=== PATIENT | male | born 1955 | race Caucasian/White ===

== ENCOUNTER 2019-12-16 10:21 | Outpatient (CLI) | payer MEDICARE, SELFPAY ==
--- NOTE | ~2019-12-16 | US_ITS ---
EXAMINATION: US carotid duplex BI DATE: 12/16/2019 11:11 INDICATION: Transient right eye visual loss. TECHNIQUE: Grayscale, color Doppler, and pulsed Doppler images of the cervical carotid arteries were obtained. The degree of vessel stenosis is placed in one of the following categories: normal, <50%, 5 0-69%, >=70% but less than near-occlusion, near-occlusion, or total occlusion. Note that percent sten osis relative to normal distal artery lumen diameter is indirectly measured from velocity measurement s as described by Norberto, et al. Radiology 2003; 229:[id number]. COMPARISON: None. FINDINGS: RIGHT: The right common carotid artery (CCA) peak systolic velocity (PSV) is 85 cm/s. The right internal car otid artery (ICA) PSV is 69 cm/s. The right ICA end-diastolic velocity (EDV) is 23 cm/s. The right IC A/CCA PSV ratio is 0.8. Grayscale and color Doppler images yield an estimate of <50% diameter reducti on from plaque in the ICA. There is antegrade flow in the right vertebral artery. LEFT: The left CCA PSV is 98 cm/s. The left ICA PSV is 87 cm/s. The left ICA EDV is 14 cm/s. The left ICA/C CA PSV ratio is 0.9. Grayscale and color Doppler images yield an estimate of <50% diameter reduction from plaque in the ICA. There is antegrade flow in the left vertebral artery. IMPRESSION: 1. <50% stenosis in the right internal carotid artery. 2. <50% stenosis in the left internal carotid artery. Reviewed, dictated and finalized at location A. ATRIC NEUROLOGIST
== END 2019-12-16 10:22 | disposition home or self-care (01) ==
PROVIDERS: Visit Provider Internal Medicine Hematology & Oncology
DX: Z86.73 Personal history of transient ischemic attack (TIA), and cerebral infarction without residual deficits (principal); I65.23 Occlusion and stenosis of bilateral carotid arteries
CPT/HCPCS: 93880

== ENCOUNTER 2020-09-03 16:00 | Emergency (ER) | payer MEDICARE, SELFPAY ==
--- NOTE | ~2020-09-03 | CT_ITS ---
EXAMINATION: CT chest abdomen pelvis w con DATE: 09/03/2020 17:00 INDICATION: Neck and low back pain post fall from ladder. TECHNIQUE: Computed tomography (CT) of the chest, abdomen, and pelvis was performed with 100 mL Omnip aque-350 intravenous contrast. Automated exposure control and iterative reconstruction technique were employed. The dose-length product was 713.86 mGy-cm. COMPARISON: Chest CT dated 05/24/2019 and abdomen and pelvis dated 04/03/2017 FINDINGS: CHEST CT: Unchanged mild subpleural atelectasis/scarring at the posterior medial right lower lobe. Additional m ild scattered linear discoid atelectasis in the bilateral lower lobes. Calcified nodules in the right middle lobe and superior segment of the left lower lobe along with calcified left hilar and mediasti nal lymph nodes consistent with old granulomatous disease. No pneumonia, pulmonary edema, pleural eff usion or pneumothorax. Heart size is normal. No pericardial effusion. Atherosclerotic coronary artery calcification. Thoracic aorta is normal in caliber with no dissection or acute traumatic aortic inju ry. No pathologically enlarged thoracic lymphadenopathy. Mild lower thoracic dextrocurvature with mod erate spondylosis. No acute osseous abnormality. ABDOMEN/PELVIS CT: Liver, gallbladder, pancreas and bilateral adrenal glands are normal. Splenic calcific calcification is consistent with old granulomatous disease. 9 mm left renal cyst. 3 mm nonobstructing stone in the upper pole calyx of the right kidney. Bladder is normal. Prostatomegaly. Bowels including the appendi x are normal. No free intraperitoneal gas or fluid. No pathologically enlarged abdominal or pelvic ly mphadenopathy. Small fat-containing umbilical hernia. Lumbar levoscoliosis with moderate to severe sp ondylosis. Mild to moderate bilateral hip osteoarthritis. No acute osseous abnormality. IMPRESSION: 1. No fractures or acute visceral organ injury in the chest, abdomen or pelvis. 2. Nonobstructing 3 mm right renal stone. 3. Prostatomegaly. Reviewed, dictated and finalized at [facility]. NOLOGY RECRUITER
--- NOTE | ~2020-09-03 | CT_ITS ---
EXAMINATION: CT cervical spine wo con DATE: 09/03/2020 16:56 INDICATION: Neck pain post fall TECHNIQUE: Computed tomography (CT) of the cervical spine was performed without intravenous contrast. Automated exposure control and iterative reconstruction technique were employed. The dose-length pro duct was 379.07 mGy-cm. COMPARISON: None FINDINGS: Straightening of the normal cervical lordosis. Chronic 2 mm anterolisthesis C4 on C5 and chronic 2 mm retrolisthesis C6 on C7. Vertebral body heights are normal. No acute fracture. Moderate disc height loss at C5-C6, C6-C7 and C7-T1 and mild disc height loss from C2-C3 through C4-C5. Mild atherosclerot ic calcification at the bilateral carotid bulbs. Cervical soft tissues are unremarkable. The followin g disc levels are specifically discussed: C2-C3: Disc is bulging. There is mild to moderate bilateral uncovertebral joint osteoarthritis. There is moderate right and severe left facet joint osteoarthritis. There is minimal right and moderate le ft neural foraminal stenosis. There is minimal central canal stenosis. C3-C4: Posterior disc osteophyte complex. There is moderate right and moderate to severe left uncover tebral joint osteoarthritis. There is moderate left and severe right facet joint osteoarthritis. Ther e is moderate to severe bilateral neural foraminal stenosis. There is mild central canal stenosis. C4-C5: Disc is bulging. Fusion across the bilateral uncovertebral and facet joints, both more advance d on the left. There is mild right and moderate left neural foraminal stenosis. There is mild centra l canal stenosis. C5-C6: Posterior disc osteophyte complex. There is severe bilateral uncovertebral joint osteoarthriti s. There is moderate bilateral facet joint osteoarthritis. There is mild to moderate bilateral neural foraminal stenosis. There is mild central canal stenosis. C6-C7: Posterior disc osteophyte complex. There is severe bilateral uncovertebral joint osteoarthriti s. There is mild right and mild to moderate left facet joint osteoarthritis. There is mild right and mild to moderate left neural foraminal stenosis. There is mild central canal stenosis. C7-T1: Disc is bulging. There is mild bilateral uncovertebral joint osteoarthritis. There is moderate right and severe left facet joint osteoarthritis. There is mild bilateral neural foraminal stenosis. There is minimal central canal stenosis. IMPRESSION: 1. Moderate to severe cervical spondylosis with no acute osseous abnormality. Reviewed, dictated and finalized at location H. ICAL INSTRUMENT REPAIR SPECIALIST
--- NOTE | ~2020-09-03 | CT_ITS ---
EXAMINATION: CT brain wo con DATE: 09/03/2020 16:56 INDICATION: Fall from ladder with neck pain TECHNIQUE: Computed tomography (CT) of the head was performed without intravenous contrast. Sagittal and coronal reconstructions were performed. The mA was adjusted according to patient size. Iterative reconstruction technique was employed. The dose-length product was 605.33 mGy-cm. COMPARISON: head CT dated 09/22/2017 FINDINGS: No fracture. No acute intracranial hemorrhage, acute infarction or abnormal extra axial fluid collect ion. Ventricles are normal and symmetric. No mass/mass effect. Slight interval progression in still m ild scattered white matter hypoattenuation consistent with chronic small vessel ischemic disease. The orbits, paranasal sinuses and mastoid air cells are normal. Intracranial calcified cerebral atherosc lerosis is noted. IMPRESSION: 1. No fracture or acute intracranial process. 2. Mild scattered white matter hypoattenuation consistent with chronic small vessel ischemic disease. Reviewed, dictated and finalized at [facility]. CORE FISHING BOAT CREWMAN IMPRESSION: 1. No fracture or acute intracranial process. 2. Mild scattered white matter hypoattenuation consistent with chronic small ve ssel ischemic disease.
[2020-09-03 16:02] VITALS: BP 124/64; PULSE 84; RESP 18; TEMP 36.6; O2SAT 98
[2020-09-03] MEDS: ONDANSETRON INJ 4 MG/2 ML VIAL IV PUSH (16:34)
[2020-09-03] MEDS: MORPHINE SULFATE (*CRX) 4 MG/ML INJ IV PUSH (16:35)
[2020-09-03 16:50] LABS: Basophils Percent Auto 0.5 % (0.2-1.2); Eosinophils Absolute Auto 0.1 K/mm3 (0-0.3); Eosinophils Percent Auto 1.3 % (0-4.4); Hematocrit 43.4 % (42.0-52.0); Hemoglobin 15.3 g/dL (14.0-18.0); Immature Granulocyte Absolute 0.06 K/mm3 (0.00-0.031); Immature Granulocyte Percent A 0.7 % (0-0.5); Lymphocytes Percent Auto 13.8 % (18.3-44.2); Mean Corpuscular HGB Conc 35.3 g/dl (32-36); Mean Corpuscular Hemoglobin 31.9 pg (26-34); Mean Corpuscular Volume 90.4 fl (80-100); Mean Platelet Volume 9.2 fl (7.4-10.4); Monocytes Absolute Auto 0.4 K/mm3 (0.1-0.6); Neutrophils Absolute Auto 6.9 K/mm3 (1.3-6.7); Neutrophils Percent Auto 78.7 % (45.5-73.1); Platelet Count Result 211 k/mm3 (150-375); Red Cell Distribution Width 12.6 % (11.5-14.5); White Blood Count 8.7 K/mm3 (4.5-10.0)
[2020-09-03 17:00] LABS: INR 0.9; Prothrombin Time 12.9 Seconds (11.1-14.7)
[2020-09-03 17:01] LABS: Anion Gap 9 mmol/L (8-16); Blood Urea Nitrogen 16 mg/dL (9-20); Carbon Dioxide 28 mmol/L (22-30); Chloride 100 mmol/L (98-107); Estimated CRCL calculation 70 ml/min; Estimated Glomerular Filt Rate > 60; Glucose 127 mg/dL (75-110); Partial Thromboplastin Time 30.4 SECONDS (22.3-36.8); Potassium 3.8 mmol/L (3.4-5.0); Sodium 137 mmol/L (137-145)
[2020-09-03 17:10] VITALS: BP 125/84; PULSE 78; RESP 18; O2SAT 98
[2020-09-03 18:00] VITALS: BP 129/86; PULSE 75; RESP 18; O2SAT 99
--- NOTE | 2020-09-03 18:06 | ED.FALL ---
HPI - Fall General Chief Complaint: Fall Stated Complaint: fell 6ft off ladder, low back pain Time Seen by Provider: 09/03/20 16:11 History of Present Illness HPI Narrative: Patient is a 65-year-old male who presents the ER after falling off a ladder going backwards while hanging [employer] lights. He landed on his upper buttocks region and then landed on his back. He is unsure if he struck his head but no he said he did not lose consciousness. He does take Eliquis due to factor V Leiden. He has no numbness or tingling to his lower extremities and is capable of moving home. However when he twists or bends or lifts his legs he has sharp pain in his mid abdomen and back. Related Data Home Medications Medication Instructions Recorded Confirmed acetaminophen-codeine tablet 09/03/20 apixaban [Eliquis] mg 09/03/20 atorvastatin 09/03/20 felodipine mg PO 09/03/20 lidocaine HCl [Aspercreme 09/03/20 (lidocaine HCl)] losartan 09/03/20 09/03/20 Allergies Allergy/AdvReac Type Severity Reaction Status Date / Time lisinopril Allergy Unknown Swelling Verified 09/03/20 16:21 Review of Systems Review of Systems: All systems reviewed & are unremarkable except as noted in HPI and below Constitutional: Constitutional: Denies chills, Denies fever(s) and Denies weakness ENT: Denies nasal congestion and Denies sore throat Cardiovascular: Cardiovascular: Denies chest pain, Denies rapid heart rate and Denies radiating jaw, neck or arm pain Respiratory: Respiratory: Denies cough and Denies dyspnea Gastrointestinal: Gastrointestinal: Denies abdominal pain, Denies nausea and Denies vomiting Musculoskeletal: Musculoskeletal: Reports back pain, Denies arthralgias, Denies joint swelling and Denies muscle cramps FOR[facility]LY [facility], [facility] Past Medical History Medical History (Updated 09/03/20 @ 18:11 by Shaun Saldivar MD) Factor V Leiden Hypertension Pulmonary embolism Surgical History Surgical History (Updated 09/03/20 @ 18:09 by Shaun Saldivar MD) Hx of knee surgery Social History Social History (Updated 09/03/20 @ 18:09 by Shaun Saldivar MD) Smoking status: Never smoker Gender identity (if verbalized by the patient): Male Exam Narrative: Exam Narrative: GENERAL: Well-appearing, well-nourished, and in no acute distress. HEAD: Normocephalic, atraumatic. ENT: Mucous membranes moist. NECK: Supple. Spine immobilized, no midline tenderness. CHEST: Clear to auscultation. No respiratory distress. HEART: Regular rate and rhythm. Normal peripheral pulses. ABDOMEN: Soft, nontender, nondistended. Back: No reproducible midline tenderness thoracic or lumbar spine. There is notable scoliosis present. No paraspinal muscular tenderness or visual evidence of trauma. EXTREMITIES: Normal range of motion. No edema. SKIN: Warm, dry, no rash. NEURO: No focal deficits. Alert and oriented x3. Course Course Emergency Course: Patient informed of results. C-spine cleared. Discharge home. Patient has a prescription for Tylenol 3 does not require any additional narcotic pain therapy. We will put him on low-dose anti-inflammatories help with his discomfort. Educated on risk of gastric ulcer and bleeding and gave signs and symptoms to be aware of. Vital Signs Vital signs: Vital Signs Temperature 97.9 F 09/03/20 16:02 Pulse Rate 84 09/03/20 16:02 Respiratory Rate 18 09/03/20 16:02 Blood Pressure 124/64 09/03/20 16:02 Pulse Oximetry 98 09/03/20 16:02 Temperature 97.9 F 09/03/20 16:02 Pulse Rate 84 09/03/20 16:02 Respiratory Rate 18 09/03/20 16:02 Blood Pressure 124/64 09/03/20 16:02 Pulse Oximetry 98 09/03/20 16:02 MDM - Fall Lab Data Result diagrams: 09/03/20 16:35 09/03/20 16:35 Labs: Lab Results 09/03/20 09/03/20 09/03/20 Range/Units 16:35 16:35 16:35 WBC 8.7 (4.5-10.0) K/mm3 RBC 4.80 (4.6-6.20) M/mm3 Hgb 15.3 (14.0-18.0) g/dL Hct
[2020-09-03 18:55] VITALS: BP 121/78; PULSE 74; RESP 17; O2SAT 95
[2020-09-03 19:22] LABS: Estimated CRCL calculation 59 ml/min; Estimated Glomerular Filt Rate 60
== END 2020-09-03 18:56 | disposition home or self-care (01) ==
PROVIDERS: Emergency Provider Emergency Medicine
DX: M54.5 Low back pain (principal); Z79.01 Long term (current) use of anticoagulants; D68.51 Activated protein C resistance; Z86.711 Personal history of pulmonary embolism; I10 Essential (primary) hypertension; N40.0 Benign prostatic hyperplasia without lower urinary tract symptoms; N20.0 Calculus of kidney; M47.812 Spondylosis without myelopathy or radiculopathy, cervical region; W13.2XXA Fall from, out of or through roof, initial encounter
CPT/HCPCS: 36415; 70450; 71260; 72125; 74177; 80048; 85025; 85610; 85730; 96374; 96375; 99284; J2270; J2405; L0140; Q9967

== ENCOUNTER 2020-09-25 15:56 | Outpatient (CLI) | payer MEDICARE, SELFPAY ==
--- NOTE | ~2020-09-25 | XR_ITS ---
EXAMINATION: XR hip LT min 2V DATE: 09/25/2020 16:25 INDICATION: Left hip pain radiating to the mid back. TECHNIQUE: Anteroposterior , frog leg and cross-table lateral views of the left hip were obtained. COMPARISON: None. FINDINGS: Alignment is normal. No fracture or suspected avascular necrosis. Left hip joint space appears relati vely preserved. Small left os acetabulum. IMPRESSION: 1. Small left os acetabulum. Otherwise unremarkable left hip radiographs. Reviewed, dictated and finalized at location B. TABLE HARVEST WORKER
== END 2020-09-25 15:57 | disposition home or self-care (01) ==
LOC: ANHIMG 16:06
DX: M25.552 Pain in left hip (principal)
CPT/HCPCS: 73502

== ENCOUNTER 2020-10-03 16:54 | Outpatient (CLI) | payer MEDICARE, SELFPAY ==
--- NOTE | ~2020-10-03 | MR_ITS ---
EXAMINATION: MR hip LT wo con DATE: 10/03/2020 18:16 INDICATION: Left hip pain. TECHNIQUE: Magnetic resonance imaging (MRI) of the left hip was performed without intravenous contras t. Sequences included axial and coronal PD-weighted FS FSE and axial T1-weighted FSE of the pelvis. S equences of the hip included 2D FIESTA, T1-weighted fast GRE, and axial, coronal, and sagittal PD-radha ghted FS FSE. COMPARISON: Left hip radiographs 09/25/2020 FINDINGS: Bones/cartilage: Bone alignment is normal. There are insufficiency fractures of the left sacral ala and left parasymph yseal pubis. There is lumbar levoscoliosis and moderate spondylosis. The hip joints demonstrate linda nal osteophytes. Small [id number] images demonstrate cartilage surface irregularity in left hip. Labrum: There is a tear of the left acetabular labrum. Fluid: There is no hip joint effusion. No significant trochanteric bursitis. Soft tissues: There is moderate tendinopathy of the left hamstring origin. The iliopsoas tendons are normal. Right gluteus medius and minimus tendons are normal. There is mild left gluteus minimus tendinopathy. Left gluteus medius tendon is normal. There is edema in some of the left hip adductor muscles that may be from the parasymphyseal pubis fracture or from mild muscle strains (grade 1). The prostate is mildly enlarged. IMPRESSION: 1. Insufficiency fractures of left sacral ala and left parasymphyseal pubis. 2. Mild osteoarthritis of the hips. Reviewed, dictated and finalized at location A. ARCH ADMINISTRATOR
== END 2020-10-03 16:55 | disposition home or self-care (01) ==
PROVIDERS: Visit Provider Orthopaedic Surgery
DX: M16.12 Unilateral primary osteoarthritis, left hip (principal)
CPT/HCPCS: 73721

== ENCOUNTER 2021-12-04 08:30 | Outpatient (CLI) | payer MEDICARE, SELFPAY ==
[2021-12-04 09:08] LABS: Basophils Absolute Auto 0.1 K/mm3 (0.0-0.1); Basophils Percent Auto 0.9 % (0.2-1.2); Eosinophils Absolute Auto 0.1 K/mm3 (0-0.3); Eosinophils Percent Auto 1.1 % (0-4.4); Hematocrit 43.7 % (42.0-52.0); Hemoglobin 14.5 g/dL (14.0-18.0); Immature Granulocyte Absolute 0.01 K/mm3 (0.00-0.031); Immature Granulocyte Percent A 0.2 % (0-0.5); Lymphocytes Absolute Auto 1.44 K/mm3 (0.9-3.2); Lymphocytes Percent Auto 25.4 % (18.3-44.2); Mean Corpuscular HGB Conc 33.2 g/dl (32-36); Mean Corpuscular Hemoglobin 30.9 pg (26-34); Mean Platelet Volume 8.8 fl (7.4-10.4); Monocytes Absolute Auto 0.4 K/mm3 (0.1-0.6); Monocytes Percent Auto 7.6 % (2.6-8.5); Neutrophils Absolute Auto 3.7 K/mm3 (1.3-6.7); Neutrophils Percent Auto 64.8 % (45.5-73.1); Platelet Count Result 211 k/mm3 (150-375); Red Cell Distribution Width 12.8 % (11.5-14.5); White Blood Count 5.7 K/mm3 (4.5-10.0)
[2021-12-04 09:11] LABS: Blood Urea Nitrogen 10 mg/dL (8-26); Carbon Dioxide 26 mmol/L (22-30); Chloride 102 mmol/L (98-109); Estimated Glomerular Filt Rate > 60; Glucose 103 mg/dL (70-105); Sodium 140 mmol/L (138-146)
[2021-12-04 10:28] LABS: Alanine Aminotransferase 38 U/L (4-50); Albumin Level 4.1 g/dL (3.5-5.1); Alkaline Phosphatase 56 U/L (38-126); Anion Gap 6 mmol/L (8-16); Aspartate Amino Transferase 29 U/L (17-59); Bilirubin,Total 0.5 mg/dL (0.2-1.3); Blood Urea Nitrogen 11 mg/dL (9-20); Calcium 8.7 mg/dL (8.4-10.2); Carbon Dioxide 27 mmol/L (22-30); Chloride 105 mmol/L (98-107); Estimated Glomerular Filt Rate > 60; Glucose 108 mg/dL (65-110); Sodium 138 mmol/L (137-145)
[2021-12-04 10:33] LABS: D Dimer 0.59 ug/mL (<0.48)
== END 2021-12-04 08:31 | disposition home or self-care (01) ==
PROVIDERS: Visit Provider Internal Medicine Hematology & Oncology
DX: D68.59 Other primary thrombophilia (principal)
CPT/HCPCS: 36415; 80053; 85025; 85380

== ENCOUNTER 2021-12-18 09:04 | Outpatient (CLI) | payer MEDICARE, SELFPAY ==
--- NOTE | ~2021-12-18 | CT_ITS ---
EXAMINATION: CTA chest PE protocol EXAM DATE: 12/18/2021 09:29 INDICATION: Shortness of breath. History pulmonary embolism. TECHNIQUE: Spiral CTA of the chest (pulmonary arteries) was performed with 100 cc Omnipaque 350 intr avenous contrast injection. Images were acquired during the pulmonary arterial phase. Coronal maxi mum intensity projection 3D-reconstructions were created by the technologist on dedicated workstation . Axial, coronal and sagittal reformatted images were reviewed. The dose-length product (DLP) for t his examination was 380.68 mGy-cm. The exposure was tailored according to patient size (auto mA exp osure control), and iterative reconstruction (ASIR) was used as additional dose reduction technique. Comparison is made to prior examination from 09/03/2020. FINDINGS: There are no pulmonary emboli in the 1st through 3rd order (central and interlobar) pulmon aditya arteries. Some loss of attenuation in the basilar segmental pulmonary from respiratory motion, t hese regions not confidently evaluated. No Intraluminal filling defects identified. No thoracic aor tic dissection. Right middle lobe calcified granuloma. No suspicious lung opacities. There are no p leural or pericardial effusions. Tracheobronchial tree is patent. There is no mediastinal, hilar or axillary lymphadenopathy. There is no pneumothorax. Mild cardiomegaly. There is moderate left anterior descending coronary arterial calcification, arterial sclerosis. There is 3 mm right calyce al stone. Splenic granulomas. There is thoracic spondylosis without osteoblastic or osteolytic lesio ns identified. IMPRESSION: 1. Limited segmental evaluation, but no pulmonary emboli are suspected. 2. Mild cardiomegaly. 3. Right nephrolithiasis. Reviewed, dictated and finalized at location A. EXTINGUISHER CHARGER
== END 2021-12-18 09:05 | disposition home or self-care (01) ==
LOC: ANHIMG 09:09
PROVIDERS: Visit Provider Internal Medicine Hematology & Oncology
DX: D68.51 Activated protein C resistance (principal); R06.02 Shortness of breath; N20.0 Calculus of kidney; I51.7 Cardiomegaly; I25.10 Atherosclerotic heart disease of native coronary artery without angina pectoris; I70.0 Atherosclerosis of aorta; M47.814 Spondylosis without myelopathy or radiculopathy, thoracic region
CPT/HCPCS: 71275; Q9967

== ENCOUNTER 2023-01-06 09:21 | Outpatient (CLI) | payer MEDICARE, SELFPAY ==
[2023-01-06 09:41] LABS: Basophils Absolute Auto 0.1 K/mm3 (0.0-0.1); Basophils Percent Auto 0.8 % (0.2-1.2); Eosinophils Absolute Auto 0.1 K/mm3 (0-0.3); Eosinophils Percent Auto 1.5 % (0-4.4); Hematocrit 44.2 % (42.0-52.0); Hemoglobin 15.5 g/dL (14.0-18.0); Immature Granulocyte Absolute 0.01 K/mm3 (0.00-0.031); Immature Granulocyte Percent A 0.2 % (0-0.5); Lymphocytes Absolute Auto 1.47 K/mm3 (0.9-3.2); Lymphocytes Percent Auto 23.7 % (18.3-44.2); Mean Corpuscular HGB Conc 35.1 g/dl (32-36); Mean Corpuscular Hemoglobin 31.9 pg (26-34); Mean Corpuscular Volume 90.9 fl (80-100); Mean Platelet Volume 8.8 fl (7.4-10.4); Monocytes Absolute Auto 0.5 K/mm3 (0.1-0.6); Monocytes Percent Auto 7.4 % (2.6-8.5); Neutrophils Absolute Auto 4.1 K/mm3 (1.3-6.7); Neutrophils Percent Auto 66.4 % (45.5-73.1); Platelet Count Result 194 k/mm3 (150-375); Red Blood Count 4.86 M/mm3 (4.6-6.20); Red Cell Distribution Width 12.7 % (11.5-14.5); White Blood Count 6.2 K/mm3 (4.5-10.0)
[2023-01-06 10:00] LABS: Alanine Aminotransferase 32 U/L (6-50); Albumin Level 4.4 g/dL (3.5-5.1); Alkaline Phosphatase 55 U/L (38-126); Anion Gap 9 mmol/L (8-16); Aspartate Amino Transferase 39 U/L (17-59); Bilirubin,Total 0.7 mg/dL (0.2-1.3); Blood Urea Nitrogen 17 mg/dL (9-20); Carbon Dioxide 29 mmol/L (22-30); Chloride 99 mmol/L (98-107); Estimated Glomerular Filt Rate > 60; Glucose 119 mg/dL (65-110); Potassium 4.2 mmol/L (3.4-5.0); Sodium 137 mmol/L (137-145)
[2023-01-06 10:11] LABS: D Dimer 0.42 ug/mL (<0.48)
== END 2023-01-06 09:22 | disposition home or self-care (01) ==
LOC: ANHLAB 09:23
PROVIDERS: Visit Provider Internal Medicine Hematology & Oncology
DX: D68.59 Other primary thrombophilia (principal)
CPT/HCPCS: 36415; 80053; 85025; 85380

== ENCOUNTER 2023-03-11 13:37 | Emergency (ER) | payer MEDICARE, SELFPAY ==
--- NOTE | ~2023-03-11 | CT_ITS ---
EXAMINATION: CT chest abdomen pelvis w con DATE: 03/11/2023 17:40 INDICATION: 12 foot ladder fall . TECHNIQUE: Computed tomography (CT) of the chest, abdomen, and pelvis was performed with 100 mL Omnip aque-350 intravenous contrast. Automated exposure control and iterative reconstruction technique were employed. The dose-length product was 818.82 mGy-cm. COMPARISON: CT thoracic and lumbar spine, same date FINDINGS: CHEST: No thoracic aortic injury. No mediastinal hematoma. No pericardial effusion. No acute lung injury. No pleural effusion or pneumothorax. ABDOMEN/PELVIS: No solid organ injury. No evidence of bowel or mesenteric injury. No free fluid or free air. No retroperitoneal hematoma. Pelvic contents are atraumatic. MUSCULOSKELETAL: No acute fracture. Mild anterior wedge deformity at L1. IMPRESSION: Mild wedge compression deformity at L1 of uncertain age. Otherwise, no acute process detected in the chest, abdomen, or pelvis. Reviewed, dictated and finalized at location K. IMPRESSION: Mild wedge compression deformity at L1 of uncertain age. Otherwise, no acute pr ocess detected in the chest, abdomen, or pelvis.
--- NOTE | ~2023-03-11 | CT_ITS ---
EXAMINATION: CT brain wo con DATE: 03/11/2023 15:06 INDICATION: fall on eliquis . TECHNIQUE: Computed tomography (CT) of the head was performed without intravenous contrast. The mA wa s adjusted according to patient size. Iterative reconstruction technique was employed. The dose-lengt h product was 681.00 mGy-cm. COMPARISON: 09/03/2020. FINDINGS: No acute intracranial hemorrhage or extra-axial fluid collection. No hydrocephalus, mass, or herniation. No acute ischemic infarct. Unremarkable dural venous sinus attenuation. No acute osseous abnormality. The aerated spaces are clear. Mild atrophy and chronic white matter change. Atherosclerotic intracranial calcification. Bilateral l ens replacements. IMPRESSION: No acute intracranial process. Reviewed, dictated and finalized at location K.
--- NOTE | ~2023-03-11 | CT_ITS ---
EXAMINATION: CT thoracic lumbar wo con DATE: 03/11/2023 15:08 INDICATION: mid back pain, trauma . TECHNIQUE: Computed tomography (CT) of the thoracic and lumbar spine was performed without intravenou s contrast. The dose-length product was 1061.21 mGy-cm. COMPARISON: None FINDINGS: THORACIC SPINE: Vertebral body alignment intact. Vertebral body heights preserved. Multilevel mild disc space narrowi ng. Multilevel facet hypertrophy. Multilevel mild and moderate degrees of bilateral lower thoracic sp ine neural foraminal narrowing. No severe neural foraminal or central canal narrowing. No traumatic m alalignment or fracture. Bibasilar scar/atelectasis. Calcified mediastinal and hilar nodes. LUMBAR SPINE: Severe lumbar scoliosis. Large bridging osteophyte on the right at L1-2. 5 nonrib-bearing lumbar-type vertebral bodies. Pedicles intact. Normal vertebral body alignment. Mild anterior wedge deformity at L1, remaining vertebral body heights preserved. Multilevel mild and moderate degenerative disc disea se. Multilevel severe lumbar facet arthropathy. Severe right neural foraminal narrowing at T12-L1. Se lewis left neural foraminal narrowing at L4-5 and L5-S1. No severe central canal narrowing. Nonobstruc ting right midpole calcification. IMPRESSION: Mild compression deformity at L1 of uncertain age. Correlate with pain/tenderness. Reviewed, dictated and finalized at location K. IMPRESSION: Mild compression deformity at L1 of uncertain age. Correlate with pain/tenderne ss.
--- NOTE | ~2023-03-11 | XR_ITS ---
EXAMINATION: XR hip BI 2V w AP pelvis DATE: 03/11/2023 14:57 INDICATION: Pelvic pain. Fall from ladder. TECHNIQUE: An anteroposterior pelvis and 2 views of each hip were obtained. COMPARISON: Left hip radiographs 09/25/2020 FINDINGS: There is lumbar levoscoliosis and severe spondylosis. No fracture. There is mild osteoarthr itis of the hips. IMPRESSION: 1. No fracture. 2. Mild osteoarthritis of the hips. Reviewed, dictated and finalized at location L.
--- NOTE | ~2023-03-11 | XR_ITS ---
EXAMINATION: XR knee RT 3V DATE: 03/11/2023 14:58 INDICATION: Distal right femur. Knee pain. Fall from ladder. TECHNIQUE: 3 views of right knee were obtained. COMPARISON: None. FINDINGS: There is varus angulation at the knee. No fracture. There is severe osteoarthritis of media l compartment, moderate osteoarthritis of lateral compartment, and mild osteoarthritis of patellofemo ral compartment. No knee joint effusion. IMPRESSION: 1. Severe right knee osteoarthritis. Reviewed, dictated and finalized at location L.
[2023-03-11 13:54] VITALS: BP 111/68; PULSE 66; RESP 18; TEMP 36.4; O2SAT 100
--- NOTE | 2023-03-11 14:55 | ED.GENADULT ---
HPI - General Adult General Chief complaint: Extremity Injury, Lower Stated complaint: fall off ladder (12 feet), left hip/leg pain Time Seen by Provider: 03/11/23 14:21 Source: patient Mode of arrival: ambulatory Limitations: no limitations History of Present Illness HPI narrative: This is a 68-year-old male who presents to the ED with chief complaint of a fall from a ladder occurring just prior to arrival. Patient states that he was 12 feet up when the ladder started to slide over on the gutter. He states his foot got caught on the rungs and he fell down with the ladder. States he landed on his left side and back. Denies any head injury or LOC. Reports pain to the low back, left hip, right knee. Reports multiple abrasions. Denies any numbness, weakness, further site of pain or injury. Related Data Home Medications Medication Instructions Recorded Confirmed acetaminophen 300 mg-codeine 30 mg tablet 09/03/20 tablet apixaban 5 mg tablet (Eliquis) mg 09/03/20 atorvastatin 10 mg tablet 09/03/20 felodipine 10 mg tablet,extended mg PO 09/03/20 release 24 hr lidocaine HCl 4 % topical cream 09/03/20 (Aspercreme (lidocaine HCl)) losartan 50 mg tablet 09/03/20 09/03/20 Allergies Allergy/AdvReac Type Severity Reaction Status Date / Time lisinopril Allergy Unknown Swelling Verified 09/03/20 16:21 Review of Systems Review of Systems: CONSTITUTIONAL: Denies fever, chills, or sweats. EYES: Denies visual changes, redness, or discharge. ENT: Denies rhinorrhea, congestion, sore throat, or otalgia. CARDIOVASCULAR: Denies chest pain, palpitations, or edema. RESPIRATORY: Denies cough or dyspnea. GASTROINTESTINAL: Denies abdominal pain, nausea, vomiting, or diarrhea. GENITOURINARY: Denies dysuria or hematuria. SKIN: See HPI MUSCULOSKELETAL: See HPI NEUROLOGIC: Denies headache, numbness, dizziness, or weakness. PSYCHIATRIC: Denies anxiety or depression. [facility] Past Medical History Medical History (Updated 03/11/23 @ 18:22 by Tello Varner PA-C) Factor V Leiden Hypertension Pulmonary embolism Surgical History Surgical History (Updated 09/03/20 @ 18:09 by Shaun Saldivar MD) Hx of knee surgery Social History Social History (Updated 09/03/20 @ 18:09 by Shaun Saldivar MD) Smoking status: Never smoker Gender identity (if verbalized by the patient): Male Exam Narrative: GENERAL: Well-appearing, well-nourished, and in no acute distress. HEAD: Normocephalic, atraumatic. EYES: PERRLA and EOMI. ENT: Nares clear, no rhinorrhea or epistaxis. Mucous membranes moist. Oropharynx without tonsillar hypertrophy exudate or other lesions. NECK: Supple. No adenopathy or masses. CHEST: No respiratory distress. Clear to auscultation. No wheezes rales or rhonchi HEART: Regular rate and rhythm. No murmur heard. Normal peripheral pulses. ABDOMEN: Soft, nontender, nondistended, normal active bowel sounds. MSK: Moderate midline tenderness to the lumbar spine. No bony deformity or step-off noted. Negative logroll of the hips bilaterally. Mild lateral left hip tenderness present. Mild tenderness to the lateral right proximal knee. No bruising or deformity to the knee or hips. His leg lengths are equal. He is ambulatory. Normal range of motion. No edema. SKIN: Warm, dry, no rash. NEURO: Alert and oriented x3. No focal deficits. PSYCH: Normal mood and affect. Course Vital Signs Vital signs: Vital Signs Temperature 97.6 F 03/11/23 13:54 Pulse Rate 66 03/11/23 13:54 Respiratory Rate 18 03/11/23 13:54 Blood Pressure 111/68 03/11/23 13:54 Pulse Oximetry 100 03/11/23 13:54 Oxygen Delivery Room Air 03/11/23 13:54 Temperature 97.6 F 03/11/23 13:54 Pulse Rate 76 03/11/23 18:35 Respiratory Rate 16 03/11/23 18:35 Blood Pressure 142/84 H 03/11/23 18:35 Pulse Oximetry 98 03/11/23 18:35 Oxygen Delivery Room Air 03/11/23 13:54 Medical Decision Yosef
[2023-03-11] MEDS: HYDROcodone/acetaminophen (*CRX) 7.5-325 MG TABLET 1 TAB PO (15:37)
[2023-03-11 17:33] LABS: Estimated CRCL calculation 36 ml/min; Estimated Glomerular Filt Rate 35
[2023-03-11 18:10] LABS: Basophils Absolute Auto 0.1 K/mm3 (0.0-0.1); Basophils Percent Auto 0.6 % (0.2-1.2); Eosinophils Percent Auto 0.3 % (0-4.4); Hemoglobin 14.6 g/dL (14.0-18.0); Immature Granulocyte Absolute 0.04 K/mm3 (0.00-0.031); Immature Granulocyte Percent A 0.5 % (0-0.5); Lymphocytes Absolute Auto 1.04 K/mm3 (0.9-3.2); Lymphocytes Percent Auto 11.9 % (18.3-44.2); Mean Corpuscular HGB Conc 34.8 g/dl (32-36); Mean Corpuscular Hemoglobin 32.4 pg (26-34); Mean Corpuscular Volume 93.1 fl (80-100); Mean Platelet Volume 9.3 fl (7.4-10.4); Monocytes Absolute Auto 0.5 K/mm3 (0.1-0.6); Monocytes Percent Auto 5.5 % (2.6-8.5); Neutrophils Absolute Auto 7.1 K/mm3 (1.3-6.7); Neutrophils Percent Auto 81.2 % (45.5-73.1); Platelet Count Result 228 k/mm3 (150-375); Red Blood Count 4.51 M/mm3 (4.6-6.20); Red Cell Distribution Width 13.2 % (11.5-14.5); White Blood Count 8.7 K/mm3 (4.5-10.0)
[2023-03-11 18:35] VITALS: BP 142/84; PULSE 76; RESP 16; O2SAT 98
[2023-03-11 18:43] LABS: Alanine Aminotransferase 31 U/L (6-50); Albumin Level 4.2 g/dL (3.5-5.1); Alkaline Phosphatase 51 U/L (38-126); Anion Gap 6 mmol/L (8-16); Aspartate Amino Transferase 37 U/L (17-59); Bilirubin,Total 0.6 mg/dL (0.2-1.3); Blood Urea Nitrogen 25 mg/dL (9-20); Calcium 8.6 mg/dL (8.4-10.2); Carbon Dioxide 26 mmol/L (22-30); Chloride 102 mmol/L (98-107); Estimated CRCL calculation 56 ml/min; Estimated Glomerular Filt Rate 60; Glucose 164 mg/dL (65-110); Sodium 134 mmol/L (137-145)
== END 2023-03-11 18:35 | disposition home or self-care (01) ==
PROVIDERS: Emergency Provider Physician Assistant; PCP Internal Medicine
DX: S32.010A Wedge compression fracture of first lumbar vertebra, initial encounter for closed fracture (principal); D68.51 Activated protein C resistance; I10 Essential (primary) hypertension; Z86.711 Personal history of pulmonary embolism; Z79.01 Long term (current) use of anticoagulants; M17.11 Unilateral primary osteoarthritis, right knee; W11.XXXA Fall on and from ladder, initial encounter
CPT/HCPCS: 70450; 71260; 72128; 72131; 73521; 73562; 74177; 80053; 85025; 99284; A9270; Q9967

== ENCOUNTER 2023-07-21 10:31 | Emergency (ER) | payer MEDICARE, SELFPAY ==
--- NOTE | ~2023-07-21 | CT_ITS ---
EXAMINATION: CT abdomen pelvis w con DATE: 07/21/2023 11:11 INDICATION: Right lower quadrant pain. Nausea. TECHNIQUE: Computed tomography (CT) of the abdomen and pelvis was performed with 100 cc Omnipaque 350 intravenous contrast. The dose-length product was 533.15 mGy-cm. Automated exposure control and iter ative reconstruction technique were employed. COMPARISON: CT dated 03/11/2023 FINDINGS: There are calcified granulomas of the spleen. Fatty infiltration of the liver. There are re ticulonodular densities in the right middle lobe which appears chronic. There is lower lobe atelectas is. There are calcified granulomas of the spleen. There is an accessory splenule. There is a 4 mm distal right ureteral stone just proximal to the UVJ with moderate hydronephrosis. There is a low-density le carlos in the left kidney, too small to characterize, although likely benign. There is a normal appendi x. Nonobstructive bowel gas pattern. Small fat-containing umbilical hernia. Enlarged prostate gland. Mild bladder wall thickening. No significant vascular abnormality. No lymphadenopathy. There is a chr onic wedge compression fracture of L1. IMPRESSION: 1. Right distal ureteral stone measuring 4 mm with moderate hydronephrosis. 2: Mild bladder wall thickening, likely due to outlet obstruction from enlarged prostate gland. Cysti tis less favored. Reviewed, dictated and finalized at location B. IMPRESSION: 1. Right distal ureteral stone measuring 4 mm with moderate hydronephrosis. 2: Mild bladder wall thickening, likely due to outlet obstruction from enlarged prostate gland. Cystitis less favored.
[2023-07-21 10:33] VITALS: BP 140/73; PULSE 65; RESP 16; TEMP 36.2; O2SAT 100
[2023-07-21 10:55] LABS: Basophils Percent Auto 0.4 % (0.2-1.2); Eosinophils Absolute Auto 0.1 K/mm3 (0-0.3); Eosinophils Percent Auto 0.9 % (0-4.4); Hematocrit 41.5 % (42.0-52.0); Hemoglobin 14.6 g/dL (14.0-18.0); Immature Granulocyte Absolute 0.03 K/mm3 (0.00-0.031); Immature Granulocyte Percent A 0.3 % (0-0.5); Lymphocytes Absolute Auto 1.31 K/mm3 (0.9-3.2); Mean Corpuscular HGB Conc 35.2 g/dl (32-36); Mean Corpuscular Hemoglobin 32.1 pg (26-34); Mean Corpuscular Volume 91.2 fl (80-100); Mean Platelet Volume 8.9 fl (7.4-10.4); Monocytes Absolute Auto 0.5 K/mm3 (0.1-0.6); Monocytes Percent Auto 5.3 % (2.6-8.5); Neutrophils Absolute Auto 7.4 K/mm3 (1.3-6.7); Neutrophils Percent Auto 79.1 % (45.5-73.1); Platelet Count Result 167 k/mm3 (150-375); Red Blood Count 4.55 M/mm3 (4.6-6.20); Red Cell Distribution Width 12.5 % (11.5-14.5); White Blood Count 9.3 K/mm3 (4.5-10.0)
[2023-07-21 10:58] LABS: Appearance Urine Clear (Clear); Bilirubin Urine Negative (Negative); Blood Urine Trace-lysed (Negative); Color Urine Yellow (Yellow); Glucose Urine UA Trace mg/dL (Negative); Ketones Urine Negative (Negative); Leukocyte Esterase Ur Negative LEU/UL (Negative); Nitrate Urine Negative (Negative); Protein Urine Negative (Negative); Specific Grav Ur 1.015 (1.001-1.035); Urobilinogen Urine 0.2 mg/dL (<2.0); pH Urine 5.5 (5.0-9.0)
[2023-07-21 10:59] LABS: Add Urine Microscopic? YES
[2023-07-21 11:01] LABS: Bacteria Urine None Seen /hpf; Non Pathogenic Casts 0-2; RBC Urine 0-2 /hpf (0-2); Squamous Epithelial Cell Urine None seen /hpf (Few); WBC Urine 0-5 /hpf
[2023-07-21 11:04] LABS: Alanine Aminotransferase 30 U/L (6-50); Albumin Level 4.5 g/dL (3.5-5.1); Alkaline Phosphatase 57 U/L (38-126); Anion Gap 8 mmol/L (8-16); Aspartate Amino Transferase 29 U/L (17-59); Bilirubin,Total 0.8 mg/dL (0.2-1.3); Blood Urea Nitrogen 17 mg/dL (9-20); Carbon Dioxide 25 mmol/L (22-30); Chloride 102 mmol/L (98-107); Estimated CRCL calculation 40 ml/min; Estimated Glomerular Filt Rate 40; Glucose 145 mg/dL (65-110); Lipase 32 U/L (23-300); Sodium 135 mmol/L (137-145)
[2023-07-21 11:04] LABS: Estimated CRCL calculation 40 ml/min; Estimated Glomerular Filt Rate 40
--- NOTE | 2023-07-21 11:28 | ED.ABDPAIN ---
HPI - Abdominal Pain General Chief Complaint: Abdominal Pain Stated Complaint: appendix is going out Time Seen by Provider: 07/21/23 10:42 Source: patient Mode of arrival: ambulatory Limitations: no limitations History of Present Illness HPI narrative: This is a 68 year old male that presents to the ER for right lower quadrant pain. Ongoing over the last couple of days. Associated with nausea and vomiting. Reports urinary frequency. Denies dysuria or hematuria. Related Data Home Medications Medication Instructions Recorded Confirmed acetaminophen 300 mg-codeine 30 mg tablet 09/03/20 tablet apixaban 5 mg tablet (Eliquis) mg 09/03/20 atorvastatin 10 mg tablet 09/03/20 felodipine 10 mg tablet,extended mg PO 09/03/20 release 24 hr lidocaine HCl 4 % topical cream 09/03/20 (Aspercreme (lidocaine HCl)) losartan 50 mg tablet 09/03/20 09/03/20 Allergies Allergy/AdvReac Type Severity Reaction Status Date / Time lisinopril Allergy Unknown Swelling Verified 09/03/20 16:21 Review of Systems Review of Systems: CONSTITUTIONAL: Denies fever GASTROINTESTINAL: Reports abdominal pain, nausea, vomiting GENITOURINARY: Denies dysuria or hematuria. All systems reviewed & are unremarkable except as noted in HPI and below PMFSH Past Medical History Medical History (Updated 07/21/23 @ 11:52 by Rebecca Bonds PA-C) Factor V Leiden Hypertension Pulmonary embolism Surgical History Surgical History (Updated 09/03/20 @ 18:09 by Shaun Saldivar MD) Hx of knee surgery Social History Social History (Updated 09/03/20 @ 18:09 by Shaun Saldivar MD) Smoking status: Never smoker Gender identity (if verbalized by the patient): Male Exam Narrative: GENERAL: Well-appearing, well-nourished, and in no acute distress. HEAD: Normocephalic, atraumatic. EYES: EOMI. CHEST: Clear to auscultation. No respiratory distress. No wheezes rales or rhonchi HEART: Regular rate and rhythm. No murmur heard. Normal peripheral pulses. ABDOMEN: Soft, nontender, nondistended, normal active bowel sounds. EXTREMITIES: Normal range of motion. No edema. SKIN: Warm, dry, no rash. NEURO: No focal deficits. Alert and oriented x3. PSYCH: Normal mood and affect Course Course Emergency Course: Patient was updated on work-up and agrees with plan of care Vital Signs Vital signs: Vital Signs Temperature 97.1 F L 07/21/23 10:33 Pulse Rate 65 07/21/23 10:33 Respiratory Rate 16 07/21/23 10:33 Blood Pressure 140/73 07/21/23 10:33 Pulse Oximetry 100 07/21/23 10:33 Oxygen Delivery Room Air 07/21/23 10:33 Temperature 97.1 F L 07/21/23 10:33 Pulse Rate 65 07/21/23 10:33 Respiratory Rate 16 07/21/23 10:33 Blood Pressure 140/73 07/21/23 10:33 Pulse Oximetry 100 07/21/23 10:33 Oxygen Delivery Room Air 07/21/23 10:33 MDM - Abdominal Pain MDM Narrative Medical decision making narrative: Patient presents to the emergency department for right lower quadrant abdominal pain ongoing over the last couple of days. He is afebrile and nontoxic-appearing. His vitals are stable. CBC without leukocytosis. Metabolic panel with kidney function that appears to be around his baseline. UA without evidence of infection. CT scan of the abdomen and pelvis shows a right distal ureteral stone measuring 4 mm. Patient was updated on work-up. Will be prescribed Flomax and pain medication as needed. Given urine strainer and will follow-up with urology. He was given warnings to return to the ER Differential Diagnosis Differential diagnosis: Likely acute appendicitis and calculus of kidney Lab Data Attestation: I reviewed the patient's lab results. 07/21/23 10:44 07/21/23 11:02 Labs: Lab Results 07/21/23 07/21/23 Range/Units 10:44 11:02 WBC 9.3 (4.5-10.0) K/mm3 RBC 4.55 L (4.6-6.20) M/mm3 Hgb 14.6 (14.0-18.0) g/dL Hct 41.5 L (42.0-52.0) %
[2023-07-21 12:07] VITALS: BP 126/78; PULSE 60; RESP 18; O2SAT 96
== END 2023-07-21 12:08 | disposition home or self-care (01) ==
PROVIDERS: Emergency Medicine; Emergency Provider Physician Assistant; PCP Internal Medicine
DX: N20.1 Calculus of ureter (principal); I10 Essential (primary) hypertension; Z86.711 Personal history of pulmonary embolism; D68.51 Activated protein C resistance
CPT/HCPCS: 36415; 74177; 80053; 81001; 83690; 85025; 99284; Q9967

== ENCOUNTER 2023-07-24 00:25 | Day surgery (SDC) | payer MEDICARE, SELFPAY ==
[2023-07-22 13:00] VITALS: BMI 26.4
--- NOTE | 2023-07-22 13:01 | PC.NURSE ---
Addendum entered by Monique Charles RN 07/23/23 14:48: Called patient regarding when he last took his Eliquis, states he took it this am. Instructed not to take any further doses until Dr. De La Fuente tells him to resume it. Original Note: Report to the Outpatient Waiting Room, entrance under the green pavilion located off [facility], at time _1215_ on date _[id number]_. Planned Procedure Time: _215pm_. Time changes happen often and if your time is changed the preop area will call you the afternoon before. - You and your visitor will be asked to self-screen and do not enter if you have any COVID symptoms. - A mask is optional within the hospital at this time. Patients may have clear liquids (water, carbonated beverages, clear teas, apple juice) until 3 hours prior to surgery with a maximum of 20 ounces. - No food from midnight until time of surgery Take the following medications with a SIP of water the morning of surgery: ____Metoprolol DO NOT STOP ANY OF YOUR OTHER PRESCRIPTION MEDICATIONS PRIOR TO SURGERY ?EXCEPT THE FOLLOWING Medications to discontinue per physician Date to take last dose Please no make-up, nail arabic, hairspray, perfume, deodorant, or body powder the day of surgery. No jewelry (including any body piercings) or valuables the day of surgery, leave them at home. Please take a shower or bath the night before, or the morning of, surgery with an antibacterial soap. Wear comfortable, loose fitting clothing. - Jewelry must be removed prior to entering the operating room. Rings and piercings that are not removed may be cut off. - The hospital will not accept responsibility for valuables. - Please leave all valuables, including medications, at home the day of surgery. If you are going home after surgery, a licensed day haul or farm charter bus driver must drive you home. - NO public transportation without another adult if you receive anesthesia. - We recommend that an adult stay with you for 24 hours following discharge. - We also recommend that you do not drive, make important decision, drink alcoholic beverages, or take any drugs that were not prescribed by your health care provider for at least 24 hours after your discharge time. Follow any additional instructions given to you from your surgeon. If you or anyone in your household have experienced Covid symptoms in the past week, please notify your surgeon or the nurse liaison at the phone number below for possible testing. Telephone instructions given to __Patient__and asked if any additional questions and then verbalized understanding. Patient advised to call surgeon office or pre surgery nurse liaison [phone] if any additional questions.
--- NOTE | ~2023-07-24 | XR_ITS ---
XR fluoroscopy no charge 07/24/2023 13:42 Procedure: Ureteral stone extraction TECHNIQUE: Fluoroscopy used during ureteral stone extraction performed by [Van De La Fuente MD ] on 07/24/2023. Fluoroscopy time is 8 seconds with 4 fluoroscopic images captured. FINDINGS: Correlate with procedure note. IMPRESSION: Fluoroscopy used during ureteral stone extraction. Reviewed, dictated and finalized at location A.
--- NOTE | 2023-07-24 06:29 | WPDHPUPDATE1 ---
History and Physical Update Update Date/Time: 07/24/23 06:29 History and Physical has been reviewed, including an updated exam of the patient. There are NO changes in the patient's condition. Risks, benefits, and alternatives have been discussed and questions answered. Patient agrees to proceed with procedure.
--- NOTE | 2023-07-24 07:20 | SUR.PREOP ---
Dr De La Fuente aware patient did not stop Eliquis until 07/23/23 and is ok to proceed.
[2023-07-24 12:00] VITALS: BP 127/70; PULSE 67; RESP 16; TEMP 37.1; O2SAT 97; BMI 26.3
[2023-07-24] MEDS: LACTATED RINGERS 1,000 ML 30 ML IV CONT (12:22)
--- NOTE | 2023-07-24 12:42 | WPDANESEPPF ---
Anes - Initial Pre Proc Eval Procedure: Operation Date: 07/24/23 14:15 Proposed Procedures p Cystoscopy, Right Ureteroscopy, Right Retrograde Pyelogram, Right Stone Extraction, Possible Right Stent Placement, Possible Holmium Laser - Van De La Fuente MD Date/Time: 07/24/23 12:42 Surgeon: Van De La Fuente MD Pre Op Diagnosis: ureteral calculus Patient Data Age: 68 Gender: M Height: 1.83 m Weight: 88.1 kg Last Vital Signs Temp 37.1 C 07/24/23 12:00 Pulse 67 07/24/23 12:00 Resp 16 07/24/23 12:00 BP 127/70 07/24/23 12:00 Pulse Ox 97 07/24/23 12:00 O2 Del Method Room Air 07/24/23 12:00 Allergies Allergy/AdvReac Type Severity Reaction Status Date / Time lisinopril Allergy Unknown Swelling Verified 07/24/23 12:34 Home Medications Medication Instructions Recorded Confirmed Type apixaban 5 mg tablet (Eliquis) 5 mg PO BID 09/03/20 07/24/23 History atorvastatin 10 mg tablet 10 mg PO HS 09/03/20 07/22/23 History felodipine 10 mg tablet,extended 10 mg PO DAILY 09/03/20 07/22/23 History release 24 hr losartan 50 mg tablet 50 mg PO DAILY 09/03/20 07/22/23 History tamsulosin 0.4 mg capsule 0.4 mg PO DAILY 1 week #7 caps 07/21/23 07/22/23 Rx metoprolol tartrate 50 mg tablet 25 mg PO DAILY 07/22/23 07/22/23 History Patient hx anesthesia problems: none Family hx anesthesia problems: none Results Review: All pre-operative results and documents have been reviewed as part of the pre-operative evaluation. [facility] Past Medical History Medical History Factor V Leiden Hypertension Pulmonary embolism Surgical History Surgical History Hx of knee surgery Social History Social History Smoking status: Never smoker Living arrangements: with family Gender identity (if verbalized by the patient): Male Spiritual care concerns: No Anes - Eval Final PreProcedure Day of Procedure 07/24/23 12:42 Patient weight: overweight Heart: regular rate and rhythm Lungs: clear to auscultation Airway: Mallampati scale class II Neurological: alert and oriented Last oral intake: >/= 8 hours ASA classification: III Emergent: no Anesthetic plan: proceed Anesthesia type and monitoring: general LMA and standard monitoring Results Review: All pre-operative results and documents have been reviewed as part of the pre-operative evaluation. Informed Consent: The patient's anesthetic plan and its attendant risks and benefits were discussed with the patient/family/POA. Questions were solicited and answers provided to the satisfaction of the patient/family/POA.
[2023-07-24] MEDS: ceFAZolin 2 GM/D5W 50 ML 2 GM/50 ML BAG IVPB (13:20)
[2023-07-24] MEDS: KETOROLAC 15 MG/ML VIAL (*BKC) IV PUSH (13:35)
--- NOTE | 2023-07-24 13:41 | P.OP_ITS ---
Procedure Note - Detailed Date of Procedure 07/24/23 Pre-op Diagnosis Right ureteral calculus Post-op Diagnosis Same Procedure Performed Cystoscopy, right ureteroscopy with stone extraction Surgeon Van De La Fuente MD Anesthesia General Description of Procedure The patient was brought to the operative suite where he is prepped and draped in a routine sterile fashion while in the dorsal lithotomy position after the uneventful induction of a general LMA anesthetic. A 19F rigid cystoscope was placed in the bladder. There are no urethral strictures. His prostatic urethra measures, approximately, 2.0cm with small median lobe enlargement. The bladder mucosa was endoscopically normal without hyperemia or neoplasm. There was a single, orthotopic ureteral orifice bilaterally. A 0.035 glidewire was advanced into the right renal pelvis under fluoroscopy. The distal ureter was dilated with an 8F/10F ureteral dilator. Ureteroscopy was undertaken with a short, tapered, semi-rigid ureteroscope and the stone was extracted with ease using a 1.9F Escape disposable stone basket. Due to the ease of this ma nipulation I opted not to place a ureteral stent. The patient's bladder was emptied and was taken to the recovery room having tolerated this procedure well. Drains No Packing No Pathology Yes Complications No immediate complications Condition Stable Disposition PACU
[2023-07-24 13:44] VITALS: BP 117/75; PULSE 61; RESP 19; TEMP 36.6; O2SAT 100
[2023-07-24 14:00] VITALS: BP 116/75; PULSE 61; RESP 14; O2SAT 97
[2023-07-24 14:15] VITALS: BP 111/73; PULSE 59; RESP 16; O2SAT 98
[2023-07-24 14:27] VITALS: BP 125/75; PULSE 61
[2023-07-24 14:55] VITALS: BP 134/74; PULSE 53
== END 2023-07-24 15:12 | disposition home or self-care (01) ==
PROVIDERS: PCP Internal Medicine; Visit Provider Urology
PROC: (CPT 52352; principal; 2023-07-24 14:15)
DX: N20.1 Calculus of ureter (principal); R10.9 Unspecified abdominal pain; R11.10 Vomiting, unspecified
CPT/HCPCS: 52352; 82365; 88300; 99199; C1769; J0690; J1885; J2704; J3010; J7120; Q9966

== ENCOUNTER 2024-01-21 08:17 | Outpatient (CLI) | payer MEDICARE, SELFPAY ==
[2024-01-21 08:42] LABS: Basophils Absolute Auto 0.1 K/mm3 (0.0-0.1); Eosinophils Absolute Auto 0.1 K/mm3 (0-0.3); Eosinophils Percent Auto 1.5 % (0-4.4); Hematocrit 44.1 % (42.0-52.0); Hemoglobin 15.6 g/dL (14.0-18.0); Immature Granulocyte Absolute 0.02 K/mm3 (0.00-0.031); Immature Granulocyte Percent A 0.3 % (0-0.5); Mean Corpuscular HGB Conc 35.4 g/dl (32-36); Mean Corpuscular Volume 90.4 fl (80-100); Mean Platelet Volume 8.6 fl (7.4-10.4); Monocytes Absolute Auto 0.5 K/mm3 (0.1-0.6); Monocytes Percent Auto 7.8 % (2.6-8.5); Neutrophils Percent Auto 67.4 % (45.5-73.1); Platelet Count Result 191 k/mm3 (150-375); Red Blood Count 4.88 M/mm3 (4.6-6.20); Red Cell Distribution Width 12.9 % (11.5-14.5); White Blood Count 5.9 K/mm3 (4.5-10.0)
[2024-01-21 09:44] LABS: Anion Gap 5 mmol/L (4-12); Blood Urea Nitrogen 20 mg/dL (9-20); Calcium 9.4 mg/dL (8.4-10.2); Carbon Dioxide 27 mmol/L (22-30); Chloride 106 mmol/L (98-107); Estimated Glomerular Filt Rate > 60; Glucose 119 mg/dL (65-110); Potassium 4.4 mmol/L (3.4-5.0); Sodium 138 mmol/L (137-145)
[2024-01-21 10:45] LABS: D Dimer 0.41 ug/mL (<0.48)
== END 2024-01-21 08:18 | disposition home or self-care (01) ==
LOC: ANHLAB 08:20
PROVIDERS: PCP Internal Medicine; Visit Provider Internal Medicine Hematology & Oncology
DX: D68.59 Other primary thrombophilia (principal)
CPT/HCPCS: 36415; 80048; 85025; 85380

== ENCOUNTER 2024-01-25 08:04 | Emergency (ER) | payer MEDICARE, SELFPAY ==
--- NOTE | ~2024-01-25 | XR_ITS ---
EXAMINATION: XR chest 2V DATE: 01/25/2024 08:26 INDICATION: Shortness of breath TECHNIQUE: PA and lateral views of the chest were obtained. COMPARISON: CT dated 07/31/2023 FINDINGS: Calcite right middle lobe nodule and multiple small splenic calcifications consistent with old granul omatous disease. No other airspace opacities, pulmonary edema, pleural effusion or pneumothorax. The cardiomediastinal silhouette is normal. Mild lower thoracic dextrocurvature with moderate spondylosis . Moderate bilateral glenohumeral osteoarthritis. IMPRESSION: 1. No acute cardiopulmonary disease. Reviewed, dictated and finalized at location A.
--- NOTE | 2024-01-25 08:06 | ECG_ITS ---
SEE SCANNED COPY FOR CONFIRMED REPORT MTDD
[2024-01-25 08:09] VITALS: BP 142/86; PULSE 86; PULSE 94; RESP 22; TEMP 37.1; O2SAT 99
[2024-01-25 08:16] VITALS: BP 136/99; PULSE 95; RESP 23; O2SAT 96
--- NOTE | 2024-01-25 08:23 | ED.SOB ---
HPI - SOB/Dyspnea General Chief Complaint: Shortness of Breath/Dyspnea Stated Complaint: SOB Time Seen by Provider: 01/25/24 08:23 History of Present Illness HPI Narrative: Patient is a 68-year-old male with history of factor 5 Leiden, hypertension, PE, compliant with Eliquis here with cough and shortness of breath. He states that 4 days ago he began having a nonproductive cough over night. He states this progressed and now it is productive in nature of clear sputum. He notes some associated shortness of breath. He has been adherent to his Eliquis. Denies any associated chest pain. He has had a subjective fever as well as nasal congestion. No known sick contacts. Related Data Home Medications Medication Instructions Recorded Confirmed apixaban 5 mg tablet (Eliquis) 5 mg PO BID 09/03/20 01/25/24 atorvastatin 10 mg tablet 10 mg PO HS 09/03/20 01/25/24 felodipine 10 mg tablet,extended 10 mg PO DAILY 09/03/20 01/25/24 release 24 hr losartan 50 mg tablet 50 mg PO DAILY 09/03/20 01/25/24 Allergies Allergy/AdvReac Type Severity Reaction Status Date / Time lisinopril Allergy Unknown Swelling Verified 01/25/24 08:16 Review of Systems Review of Systems: All systems reviewed & are unremarkable except as noted in HPI and below PMFSH Past Medical History Medical History Factor V Leiden Hypertension Pulmonary embolism Surgical History Surgical History Hx of knee surgery Social History Social History Smoking status: Never smoker Living arrangements: with family Gender identity (if verbalized by the patient): Male Spiritual care concerns: No Exam Narrative: GENERAL: Well-appearing, well-nourished, and in no acute distress. HEAD: Normocephalic, atraumatic. EYES: PERRLA and EOMI. ENT: Nares clear. Mucous membranes moist. NECK: Supple. CHEST: Clear to auscultation. No respiratory distress. HEART: Regular rate and rhythm. Normal peripheral pulses. ABDOMEN: Soft, nontender, nondistended. EXTREMITIES: Normal range of motion. No edema. SKIN: Warm, dry, no rash. NEURO: No focal deficits. Alert and oriented x3. PSYCH: Normal mood and affect. Course Course Emergency Course: Chart review performed. Patient here with SOB, cough, difficulty sleeping. Triage vitals grossly normal. Last note in our system was from Urology in July 2023 when they performed lithotripsy for a right ureteral calculus. Anesthesia note preprocedure notes history of Factor V Leiden, HTN, PE. Patient seen evaluated, nontoxic appearing, does not appear to be in respiratory distress. Differentials include viral infection versus bacterial pneumonia, will do cardiac workup. Patient agreeable to workup and plan. Wells low risk, cannot rule out with PERC criteria given history of PE. Will do screening d-dimer. Lab work and imaging reviewed, CBC unremarkable, no leukocytosis. Troponin negative, BNP normal. COVID, Influenza, RSV negative. CXR negative for pneumonia. Suspect likely viral process. D-dimer negative. Patient re-evaluated, feeling well. Updated on results. Discussed that his symptoms are likely due to a viral infection. Will start him on Flonase, Mucinex, Tessalon Perles. Advised follow-up with his primary doctor in the next couple of days to monitor symptom improvement. Patient agreeable. The results of pertinent diagnostic studies and exam findings were discussed. The patient?s provisional diagnosis and plan of care were discussed with the patient and present family. The patient and/or present family expressed understanding of the diagnosis and plan. The nurse was instructed to provide written instructions and appropriate follow-up information. The patient understands their need and responsibility to obtain additional follow-up as instructed. The risks of medicatio
[2024-01-25 08:28] VITALS: BP 122/80; PULSE 94; RESP 23; O2SAT 95
[2024-01-25 08:28] LABS: Basophils Absolute Auto 0.1 K/mm3 (0.0-0.1); Basophils Percent Auto 0.6 % (0.2-1.2); Eosinophils Absolute Auto 0.1 K/mm3 (0-0.3); Eosinophils Percent Auto 1.2 % (0-4.4); Immature Granulocyte Absolute 0.02 K/mm3 (0.00-0.031); Immature Granulocyte Percent A 0.2 % (0-0.5); Lymphocytes Absolute Auto 0.83 K/mm3 (0.9-3.2); Lymphocytes Percent Auto 9.7 % (18.3-44.2); Mean Corpuscular HGB Conc 34.8 g/dl (32-36); Mean Corpuscular Hemoglobin 31.9 pg (26-34); Mean Corpuscular Volume 91.8 fl (80-100); Mean Platelet Volume 8.8 fl (7.4-10.4); Monocytes Absolute Auto 0.5 K/mm3 (0.1-0.6); Monocytes Percent Auto 6.3 % (2.6-8.5); Platelet Count Result 178 k/mm3 (150-375); Red Blood Count 5.01 M/mm3 (4.6-6.20); Red Cell Distribution Width 13.4 % (11.5-14.5); White Blood Count 8.5 K/mm3 (4.5-10.0)
[2024-01-25 08:40] LABS: Alanine Aminotransferase 36 U/L (6-50); Albumin Level 4.5 g/dL (3.5-5.1); Alkaline Phosphatase 63 U/L (38-126); Anion Gap 9 mmol/L (4-12); Aspartate Amino Transferase 29 U/L (17-59); Bilirubin,Total 0.7 mg/dL (0.2-1.3); Blood Urea Nitrogen 12 mg/dL (9-20); Calcium 9.2 mg/dL (8.4-10.2); Carbon Dioxide 24 mmol/L (22-30); Chloride 104 mmol/L (98-107); Estimated CRCL calculation 74 ml/min; Estimated Glomerular Filt Rate > 60; Glucose 168 mg/dL (65-110); Potassium 3.8 mmol/L (3.4-5.0); Sodium 137 mmol/L (137-145)
[2024-01-25 09:00] VITALS: BP 127/69; PULSE 85; RESP 23; O2SAT 91
[2024-01-25 09:04] LABS: Influenza A QL RT-PCR Negative (Negative); Influenza B QL RT-PCR Negative (Negative); RSV RNA, RT-PCR Negative (Negative); SARS-CoV-2 RNA PCR Negative (Negative)
[2024-01-25 09:11] LABS: NT Pro B Type Natriuretic Pept 72 pg/mL (19.9-100); Troponin I 0.014 ng/mL (0.000-0.034)
[2024-01-25 10:04] VITALS: BP 155/89; PULSE 87; RESP 17; O2SAT 95
[2024-01-25 11:32] LABS: D Dimer 0.41 ug/mL (<0.48)
[2024-01-25 11:48] VITALS: BP 122/74; PULSE 89; RESP 18; O2SAT 97
== END 2024-01-25 11:49 | disposition home or self-care (01) ==
PROVIDERS: Emergency Provider Student in an Organized Health Care Education/Training Program; PCP Internal Medicine
DX: J06.9 Acute upper respiratory infection, unspecified (principal); Z20.822 Contact with and (suspected) exposure to COVID-19; I10 Essential (primary) hypertension; D68.51 Activated protein C resistance; Z86.711 Personal history of pulmonary embolism; Z79.01 Long term (current) use of anticoagulants; I45.10 Unspecified right bundle-branch block
CPT/HCPCS: 36415; 71046; 80053; 83880; 84484; 85025; 85380; 87637; 93005; 99284

== ENCOUNTER 2024-02-09 09:36 | Outpatient (CLI) | payer MEDICARE, SELFPAY ==
--- NOTE | ~2024-02-09 | XR_ITS ---
EXAMINATION: XR abdomen/kub 1V DATE: 02/09/2024 09:53 INDICATION: Right distal ureteral stone. TECHNIQUE: A supine view of the abdomen on 2 radiographs was obtained. COMPARISON: CT abdomen and pelvis 07/21/2023 FINDINGS: There are no dilated loops of bowel. Calcifications in the spleen are consistent with old g ranulomatous disease. There is a phlebolith in left pelvis. IMPRESSION: 1. No visible urolithiasis. Reviewed, dictated and finalized at location A. IMPRESSION: 1. No visible urolithiasis.
== END 2024-02-09 09:37 | disposition home or self-care (01) ==
PROVIDERS: PCP Internal Medicine; Visit Provider Urology
DX: N20.1 Calculus of ureter (principal)
CPT/HCPCS: 74018

== ENCOUNTER 2025-02-22 08:16 | Outpatient (CLI) | payer MEDICARE, SELFPAY ==
--- OUTSIDE RECORDS SUMMARY | 2025-02-22 08:22 | XMS_ITS | Patient Health Record ---
Author Organization [facility] Address [address] [place], [place] [id number] Care Team Providers Care Events Intern Name Role Phone Answer, Declined Unavailable Unavailable Allergies Allergen (clinical drug ingredient) Drug/Non Drug Allergy documented on EMR Reaction Allergy Type Onset Date Status lisinopril Lisinopril Unknown Drug Allergy Activ e Reason For Referral No Information Immunizations Vaccine Route Administration Date Status Comme nts Influenza, high dose seasonal Unknown 12/25/2023 Refuse d Pneumococcal conjugate PCV 13 Unknown 12/25/2023 Refuse d Social History Tobacco Use: Social History Observation Description Date Details (start date - stop date) Never Smoker NA - NA Tobacco Control (Standard) Question Answer Notes Tobacco use: Nonsmoker Plan Of Treatment No Information Insurance Providers Payer Name Payer Address Payer Phone Subscriber Number Group Number Insured Name Patient Relationship to Insured Coverage Start Date Coverage End Date Medicare Part B [place] [address] [place] [address] [id number] Victorino Espinal i Self - patient is the insured [facility] Medicare Supplement [address] [place], [place] [id number] Victorino Espinal i Self - patient is the insured
--- OUTSIDE RECORDS SUMMARY | 2025-02-22 08:22 | XMS_ITS ---
Author Name Auto Generated, Auto Generated Organization [facility] Address [address] [place] [address] Phone [phone] Care Team Providers Care Furniture Restorer Name Role Phone Jeromy Merino Unavailable [phone] Functional Status No Results Mental Status No Results Allergies and Intolerances Name Onset Date Reaction Severity lisinopril (Allergy) FriJul 13 14:36:00 EDT 202 4 Encounters Program Name Primary Diagnosis Admission Date/Time Dis charge Date/Time Home Care FriJul 13 20:00 :00 EDT 2023Jul 30 19:59:59 EDT 2023 Medications Medication Directions Start Date End Date Eliquis 2.5 mg tablet 1 TAB TABLET Oral Every 1 Day for 1 Week FriJul 14 01:00:00 EDT 2023Jul 21 00:59:00 EDT 2023 Eliquis 5 mg tablet 1 TAB TABLET Oral 2 Times Daily FriJul 20 01:00:00 EDT 2023Jul 30 01:00:00 EDT 2023 acetaminophen 500 mg capsule 2 CAP CAPSULE Oral PRN Every 8 Hours PRN MILD TO MODERATE PAINDO NOT EXCEED 3000 MG ACETAMINOPHEN IN 24 HRS FriJul 14 01:00:00 EDT 2023Jul 30 01:00:00 EDT 2023 Percocet 5 mg-325 mg tablet 1-2 TAB TABLET Oral PRN Every 6 Hours PRN MODERATE TO SEVERE PAIN FriJul 14 01:00:00 EDT 2023Jul 30 01:00:00 EDT 2023 atorvastatin 10 mg tablet 1 TAB TABLET O ral Hour Of Sleep FriJul 14 01:00:00 EDT 2023Jul 30 01:00:00 EDT 2023 fluticasone 250 mcg-salmeteroL 50 mcg/dose blistr powdr for inhalation 1 PUFF BLISTER, WITH INHALATION DEVICE Inhalation 2 Times Daily FriJul 14 01:00:00 EDT 2023Jul 30 01:00:00 EDT 2023 losartan 50 mg tablet 0.5 TAB TABLET Ora l Every 1 Day FriJul 14 01:00:00 ED2023Jul 30 01:00:00 EDT 2023 docusate sodium 100 mg capsule 1 CAP CAPSULE Oral 2 Times Daily HOLD FOR LOOSE STOOLS FriJul 14 01:00:00 EDT 2023Jul 30 01:00:00 EDT 2023 Miralax 17 gram oral powder packet 17 GRAM POWDER IN PACKET (EA) Oral PRN Every 1 Day PRN CONSTIPATION FriJul 14 01:00:00 EDT 2023Jul 30 01:00:00 EDT 2023 Problems Active Concerns * Aftercare following joint replacement surgery* Code: * Start Date: FriJul 13 00:00:00 EDT 2023 * End Date: * Text: * Presence of left artificial knee joint* Code: * Start Date: FriJul 14 00:00:00 EDT 2023 * End Date: * Text: * Personal history of pulmonary embolism* Code: * Start Date: FriJul 14 00:00:00 EDT 2023 * End Date: * Text: * [employer]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* Code: * Start Date: FriJul 14 00:00:00 EDT 2023 * End Date: * Text: * snf (current) use of anticoagulants* Code: * Start Date: FriJul 14 00:00:00 EDT 2023 * End Date: * Text: * History of falling* Code: * Start Date: FriJul 14 00:00:00 EDT 2023 * End Date: * Text: * Low back pain, unspecified* Code: * Start Date: FriJul 14 00:00:00 EDT 2023 * End Date: * Text: * Scoliosis, unspecified* Code: * Start Date: FriJul 14 00:00:00 EDT 2023 * End Date: * Text: * Pure hypercholesterolemia, unspecified* Code: * Start Date: FriJul 14 00:00:00 EDT 2023 * End Date: * Text: * Activated protein C resistance* Code: * Start Date: FriJul 14 00:00:00 EDT 2023 * End Date: * Text: * Essential (primary) hypertension* Code: * Start Date: FriJul 14 00:00:00 EDT 2023 * End Date: * Text: * Presence of right artificial knee joint* Code: * Start Date: FriJul 14 00:00:00 EDT 2023 * End Date: * Text: Reason for Referral
--- OUTSIDE RECORDS SUMMARY | 2025-02-22 08:22 | XMS_ITS | Continuity of Care Document ---
Author Organization [facility] Address [address] [place] [address] Phone Care Team Providers Care Sole Molding Machine Operator Name Role Phone Shanta Peraza DPM Unavailable Unavailable Allergies, Adverse Reactions, Alerts Substance Reaction Status Criticality No Known Allergies Active No Inform ation No Known Drug Allergies Active No I nformation Procedures Procedure Date Medical Record Copy Medical Record Copy Per Page Affidavit Office/outpatient visit,est, mod 2012 Supplemental Report Office/outpatient visit,est, mod 2012 Supplemental Report Supplemental Report Office/outpatient visit,est, mod 2012 Office/outpatient visit,est, mod 2012 Supplemental Report Office/outpatient visit,est, mod 2012 Supplemental Report Office/outpatient visit,est, mod 2012 Supplemental Report Office/outpatient visit,est, mod 2011 Supplemental Report Global/Postop followup visit Supplemental Report Global/Postop followup visit Supplemental Report Global/Postop followup visit Supplemental Report Global/Postop followup visit Supplemental Report Repair ruptured rotator cuff, acute Repair biceps long tendon rupture Arthscpy shldr dstl claviculectomy Subacromial Decompression Arm Sling W/ Foam Pad Office consultation, moderate 2 X-ray exam of shoulder, complete 2011 Advance Directives Directive Yes / No Effective Date File Name No Information Encounters Encounter Description Practice Location Reason(s) For Visit Diagnoses Date Provider Providers Copied on Encounter [facility], [address] [address], [place], [place], [id number], [place] tel:[phone] [facility] No Information 3 Stu R. [address] [address], [place], [place], [id number], [place]. tel:[phone] [facility], [address], [id number], [place] tel:[phone] [facility] No Information 3 Administrati ve Provider. [address] [facility], [facility] [address], [place], [place], [id number], [place]. tel:[phone] Office/outpa tient visit,est, [facility], [address] [address], [place], [place], [id number], [place] tel:[phone] [facility] ORTHOPEDIC AFTERCARE NOSSPRAIN ROTATOR CUFFROTATOR CUFF SYND NOS 3 Kenia Winslow. [address] [facility], [facility] [address], [place], [place], [id number], [place]. tel:[phone] Office/outpa tient visit,est, [facility], [address] [address], [place], [place], [id number], [place] tel:[phone] [facility] ORTHOPEDIC AFTERCARE NOSROTATOR CUFF SYND NOSSPRAIN ROTATOR CUFF 3 Kenia Winslow. [address] [facility], [facility] [address], [place], [place], [id number], [place]. tel:[phone] Office/outpa tient visit,est, [employer] [facility], [address] [address], [place], [place], [id number], [place] tel:[phone] [facility] ROTATOR CUFF SYND NOS Dec-0 6 3 Emilymela Winslow. [address] [facility], [address] [address], [place], [place], [id number], [place]. tel:[phone] Office/outpa tient visit,est, [employer] [facility], [address] [address], [place], [place], [id number], [place] tel:[phone] [facility] SPRAIN ROTATOR CUFF Fe-2 0 3 Emilylinettejaspreet Goldy. [address] [place] [address], [place], [place], [id number], [place]. tel:[phone] Office/outpa tient visit,est, [employer] [facility], [address] [place] [address], [place], [place], [id number], [place] tel:[phone] [facility] SPRAIN ROTATOR CUFF 2 8 3 Kenia Winslow. [address] [facility], [address] [address], [place], [place], [id number], [place]. tel:[phone] Office/outpa tient visit,est, [employer] [facility], [address] [address], [place], [place], [id number], [place] tel:[phone] [facility] JOINT PAIN-SHLDER 0 7 3 Kenia Winslow. [address] [facility], [address] [address], [place], [place], [id number], [place]. tel:[phone] Office/outpa tient visit,est, [employer] [facility], [address] [place] [address], [id number], [place] tel:[phone] [facility] ORTHOPEDIC AFTERCARE NOSROTATOR CUFF SYND NOSSPRAIN ROTATOR CUFF Sep-0 4 2 Kenia Winslow. [address] [place] [address], [address] [address], [place], [place], [id number], [place]. tel:[phone] [facility], [address] [address], [place], [place], [id number], [place] tel:[phone] [facility] ORTHOPEDIC AFTERCARE NOSSPRAIN ROTATOR CUFFROTATOR CUFF SYND NOS Nov-1 3-201 2 Kenia Winslow. [address] [facility], [facility] [address], [place], [place], [id number], [place]. tel:[phone] [facility], [address] [address], [place], [place], [id number], [place] tel:[phone] [facility] OTH ORTHOPEDIC AFTERCAREROTAT OR CUFF SYND NOSSPRAIN ROTATOR CUFF Oct-2 3-201 2 Kenia Winslow. [address] [facility], [address] [address], [place], [place], [id number], [place]. tel:[phone] [facility], [address] [address], [place], [place], [id number], [place] tel:[phone] [facility] ORTHOPEDIC AFTERCARE NOSROTATOR CUFF SYND NOSSPRAIN SHOULDER/ARM NECSPRAIN ROTATOR CUFFSHOULDER REGION DIS NEC Oct-0 2-201 2 Kenia Winslow. [address] [facility], [address] [address], [place], [place], [id number], [place]. tel:[phone] [facility], [address], [id number], [place] tel:[phone] [facility] SHOULDER REGION DIS NECSPRAIN ROTATOR CUFFSPRAIN SHOULDER/ARM NECROTATOR CUFF SYND NOS Sep-1 1-201 2 Kenia Winslow. [address] [facility], [facility] [address], [place], [place], [id number], [place]. tel:[phone] [facility], [address], [id number], [place] tel:[phone] [facility] SPRAIN ROTATOR CUFFSPRAIN SHOULDER/ARM NECSHOULDER REGION DIS NECROTATOR CUFF SYND NOS Sep-0 4-201 2 Emilyalsjaspreet Winslow. [address] [facility], [address], [place], [place], [id number], [place]. tel:[phone] [facility], [address] [place] [address], [id number], [place] tel:[phone] [facility] SPRAIN ROTATOR CUFF 0 2 Kenia Winslow. [address] [place] [address], [address] [address], [place], [place], [id number], [place]. tel:[phone] Office consultation , moderate [facility], [address] [place] [address], [id number], [place] tel:[phone] [facility] SPRAIN ROTATOR CUFFJOINT PAIN-SHLDER 2 Kenia Winslow. [address] [place] [address], [address] [address], [place], [place], [id number], [place]. tel:[phone] Family History Family Member Type Diagnosis Age At Onset No Information Payers Payer name Insurance type Covered democrat ID Authoriza tion(s) No Information Social History Type Description Quantity Date Captured Comments Sex Male Smoking Status No Information Chief Complaint And Reason For Visit No Information Reason For Referral Reason For Referral No Information History Of Present Illness Encounter Date Complaint History Of Prese nt Illness No Information Functional Status Date Functional Assessmen t No Information Instructions Date Instruction Additional Infor mation No Information Assessments Type Assessment Date No Information Patient Care Teams Name Effective Dates (start - stop) Status Members No Information
--- OUTSIDE RECORDS SUMMARY | 2025-02-22 08:22 | XMS_ITS | Encounter Summary ---
Author Organization [facility] Address [facility] [place] [address] Care Team Providers Care Plastic Worker Name Role Phone Tirso Lazaro MD Primary Care Provider [phone] Ana Ojeda MD Unavailable [phone] George Vargas MD Primary Care Provider [phone] Encounter Details Date Type Department Care Team (Late st Contact Info) Description 07/22/2018 Abstract [facility] at [address] [id number] Reyna Ugarte MA Social History Tobacco Use Types Packs/Day Years Used Date Smoking Tobacco: Never Smokeless Tobacco: Never Alcohol Use Standard Drinks/Week Comments Yes 0 (1 standard drink = 0.6 oz pur e alcohol) AUDIT-C Answer Date Recorded Frequency of Alcohol Consumption Not on file 07/17/2018 Average Number of Drinks 3 or 4 018 Frequency of Binge Drinking Not on file 02/2018 Sex and Gender Information Value Date Recorded Sex Assigned at Male 11/29/2024 10:25 AM KEYBOARD OPERATOR Legal Sex Male 6:46 PM CDT Gender Identity Not on file Sexual Orientation Not on file documented as of this encounter Plan of Treatment Upcoming Encounters Date Type Department Care Team (Late Contact Info) Description 12/05/2025 10:30 AM KEYBOARD OPERATOR Office Visit [facility], [address] [id number] Sarita Bhat MD [address] [facility] [address] [place] [id number] documented as of this encounter Procedures Procedure Name Priority Date/Time Associated Diagnosis Comments CBC (OUTSIDE LAB) Routine 06/12/2018 PROSTATE SPECIFIC ANTIGEN,TOTAL Routine 06/12/2018 COMPREHENSIVE METABOLIC PANEL Routine 06/12/2018 THYROID STIM HORMONE TSH Routine 06/12/2018 documented in this encounter Results * PROSTATE SPECIFIC ANTIGEN,TOTAL (06/12/2018) PSA 1.0 06/12/2018 [facility] Final Result * THYROID STIM HORMONE, TSH (06/12/2018) TSH 1.820 06/12/2018 us [facility] Final Result * (ABNORMAL) COMPREHENSIVE METABOLIC PANEL (06/12/2018) SODIUM S/P/B 140 POTASSIUM S/P/B 4.4 CO2 26 CHLORIDE S/P/B 102 GLUCOSE 99 mg/dL CALCIUM S/P/B 9.3 BUN 15 CREATININE S/P/B 0.81 0.7 - 1.3 EGFR AFR. AMER. 108 EGFR NON-AFR. AMER. 93(A) <=90 ALKALINE PHOSPHATASE S/P/B 52 ALT 24 AST 20 BILIRUBIN TOTAL S/P/B 0.7 ALBUMIN S/P/B 4.3 3.5 - 5.0 TOTAL PROTEIN S/P/B 6.7 GLOBULIN 2.4 06/12/2018 [facility] Doc [facility] Edited Resul t - Final * CBC (OUTSIDE LAB) (06/12/2018) WBC 4.2 HGB 15.3 HCT 43 PLT 187 06/12/2018 us Doc [facility] Abstract LAB-OUTSIDE/ABSTRACTED Final Result documented in this encounter Visit Diagnoses Not on filedocumented in this encounter Care Teams Plastic Worker Relationship Specialty Start Date End Date Tirso Lazaro MD PCP - General 05/03/17 04/03/23 George Vargas MD [address] [facility] [address] [place] [address] PCP - General INTERNAL MEDICINE 04/04/23 Ana Ojeda MD [place] Social Insurance Administrator INTERVENTIONAL CARDIOLOGY 07/08/18 documented as of this encounter
--- OUTSIDE RECORDS SUMMARY | 2025-02-22 08:22 | XMS_ITS | Encounter Summary ---
Author Organization [facility] [employer] [facility] Address [address] [place] [address] Care Team Providers Care Medicaid Business Analyst Name Role Phone George Vargas MD Primary Care Provider [phone] Encounter Details Date Type Department Care Team (Late st Contact Info) Description 06/11/2019 Telephone [facility] Oncology and Hematology - [place] [address] [facility] [address] [place] [address] Fuad Rodríguez MD [address] [facility] [address] [place] [address] Social History Tobacco Use Types Packs/Day Years Used Date Smoking Tobacco: Never Smokeless Tobacco: Never Alcohol Use Standard Drinks/Week Comments Yes 0 (1 standard drink = 0.6 oz pur e alcohol) occasional Sex and Gender Information Value Date Recorded Sex Assigned at Not on file Legal Sex Male 3:28 AM BUSINESS CASE ANALYST Gender Identity Not on file Sexual Orientation Not on file documented as of this encounter Miscellaneous Notes * Telephone Encounter - Ashley Smyth - 06/11/2019 1:10 PM CDT Pt has appt today at 3:30; looking for surgery clearance for carpal tunnel. documented in this encounter Plan of Treatment Upcoming Encounters Date Type Department Care Team (Late st Contact Info) Description 03/08/2025 11:45 AM CDT Office Visit [facility] Oncology and Hematology - [place] [address] [facility] [address] [place] [address] Fuad Rodríguez MD [address] [facility] [address] [place] [address] documented as of this encounter Visit Diagnoses Not on filedocumented in this encounter Care Teams Medicaid Business Analyst Relationship Specialty Start Date End Date George Vargas MD [address] [facility] [address] [place] [address] PCP - General Internal Medicine 01/15/23 documented as of this encounter
--- OUTSIDE RECORDS SUMMARY | 2025-02-22 08:23 | XMS_ITS ---
Author Organization [facility] Address [address] [facility] [address] [facility] [address] [place], [place] [id number] Care Team Providers Care Physical Testing Supervisor Name Role Phone Answer, Declined Unavailable Unavailable CARLA BAIG Unavailable [phone] Allergies Allergen (clinical drug ingredient) Drug/Non Drug Allergy documented on EMR Reaction Allergy Type Onset Date Status lisinopril Lisinopril Unknown Drug Allergy Activ e REASON FOR VISIT Patient returns to the office following toenail surgery and is doing great Vital Signs Weight 200 lbs 01/01/2024 Weight-kg 90.72 kg 01/01/2024 Height 72 in 01/01/2024 Height-cm 182.88 cm 01/01/2024 BMI 27.12 kg/m2 01/01/2024 Encounters Encounter Location Date Provider Diagnosis [facility] [address] [facility] [address] [place], [place] [id number] 01/01/2024 CARLA BAIG Ingrowing nail L60.0 and Encounter for other specified surgical aftercare Z48.89 Assessments Encounter Date Diagnosis (ICD Code) Assessment Notes Treatment Notes Treatment Clinical Notes Section Notes 01/01/2024 Ingrowing nail (ICD-10 - L60.0) Post-op Matrixectomy The patient will continue foot soaks and covering with a dry bandage until drainage has stopped. The patient will monitor this area for any signs of recurrence and contact the office with any problems. Patient will follow-up on an as-needed basis. 01/01/2024 Encounter for other specified surgical aftercare (ICD-10 - Z48.89) Plan Of Treatment Treatment Notes Assessment Notes Ingrowing nail Post-op Matrixectomy The patient will continue foot soaks and covering with a dry bandage until drainage has stopped. The patient will monitor this area for any signs of recurrence and contact the office with any problems. Patient will follow-up on an as-needed basis. Next Appt Details Follow Up: prn, Reason: Progress Notes * Victorino TURCIOSDOB: [birth year] (69 yo M)Acc No.[id number]:01/01/2024 Patient: Victorino GRAHAM Provider: Tiffanie Baig DPM :1955 A ge:68 Y S ex:Male Date:01/01/2024 Address:[address] [place], [place] [id number] Subjective: * Chief Complaints: * 1 . Patient returns to the office following toenail surgery and is doing great. * HPI: H PI: Follow Up Visit Uziel rojo presents for follow up visit for right G toenail surgery. P alia states their problem is resolved. Patient states there is no pain and no drainage. M A:SS. * Medical History: * Medications: N one * Allergies: L isinopril. Objective: * Vitals: W t:200lbs, Wt-k.72 kg, Ht: 72 in, Ht-cm: 182.88 cm, BMI:27.12Index, Body Surface Area: 2.14. * Examination: D ermatologic: Ingrown Nail N ail surgery site is healing well. No signs of infection. Assessment: * Assessment: 1. I ngrowing nail - L60.0 (Primary) 2 . E ncounter for other specified surgical aftercare - Z48.89 Plan: * Treatment: * Procedure Codes: 9 9024 POSTOP FOLLOW-UP VISIT * Follow Up: p rn * Billing Information: * Visit Code: * Procedure Codes: 70903 POSTOP FOLLOW-UP VISIT. * Electronic signature of CARLA BAIG DPM on 02/22/2025 at 08:23 AM CDT Sign off status: Pending * Provider: Tiffanie Baig DPM Date: 0 01/01/2024 Generated for Dionte richard/Gibran/eTransmitting on: 0 02/22/2025 08:23 AM CDT History and Physical Notes * HPI (History of Present Illness) Category Sub-Category Detail Notes Category Not es HPI Follow Up Visit Patient presents for follow up visit for right G toenail surgery. Patient states their problem is resolved. Patient states there is no pain and no drainage. MA:SS Examination Category Sub-Category Detail Notes Category Not es Dermatologic Ingrown Nail Nail surgery sit e is healing well. No signs of infection
--- OUTSIDE RECORDS SUMMARY | 2025-02-22 08:23 | XMS_ITS | Encounter Summary ---
Author Organization [employer] [facility] Address [address] [place] [address] Care Team Providers Care Test Carrier Name Role Phone George Vargas MD Primary Care Provider [phone] Encounter Details Date Type Department Care Team (Late st Contact Info) Description 01/29/2007 Outpatient Historical [facility] Karla Borden MD Thoracic Sprain and Strain (Primary Dx) Social History Tobacco Use Types Packs/Day Years Used Date Smoking Tobacco: Never Assessed Sex and Gender Information Value Date Recorded Sex Assigned at Not on file Legal Sex Male 3:28 AM MANAGER COMMISSION Gender Identity Not on file Sexual Orientation Not on file documented as of this encounter Plan of Treatment Upcoming Encounters Date Type Department Care Team (Late st Contact Info) Description 03/08/2025 11:45 AM CDT Office Visit [facility] Oncology and Hematology - [place] [address] [facility] [address] [place] [address] Fuad Rodríguez MD [address] [facility] [address] [place] [address] documented as of this encounter Visit Diagnoses Diagnosis Sprain of thoracic region- Primary documented in this encounter Care Teams Test Carrier Relationship Specialty Start Date End Date George Vargas MD [address] [facility] [address] [place] [address] PCP - General Internal Medicine 01/15/23 documented as of this encounter
--- OUTSIDE RECORDS SUMMARY | 2025-02-22 08:23 | XMS_ITS | Clinical Summary ---
Author Organization [facility] Address [facility] [place] [address] Care Team Providers Care Patient Navigator Name Role Phone Ana Ojeda MD Unavailable [phone] George Vargas MD Primary Care Provider [phone] Allergies Active Allergy Reactions Criticality Noted Date Comments Lisinopril Angioedema 04/11/2017 Lip swelling Medications losartan 50 MG tablet Take 0.5 tablets (25 mg total) by mouth daily. Active Felodipine 10 MG TABLET SR 24 HR Take 10 mg by mouth. Active nitroglycerin 0.[address] 1 tablet (0.4 mg total) under the tongue every 5 (five) minutes as needed for Chest Pain. Max of 3 doses, after 3rd dose kaylee 911 25 tablet 1 07/17/2018 Active ELIQUIS 5 MG tablet Take 1 tablet (5 mg total) by mouth 2 (two) times daily. 06/03/2017 Active famotidine (PEPCID) 20 MG tablet TAKE 1 TABLET(20 MG) BY MOUTH TWICE DAILY 180 tablet 3 12/11/2023 Active Acetaminophen 500 MG Cap 07/14/2024 Active albuterol sulfate HFA (VENTOLIN HFA) 108 (90 Base) MCG/ACT inhaler INHALE 2 PUFFS BY MOUTH EVERY 4 HOURS Active Docusate Sodium (DSS) 100 MG Cap 07/14/2024 Active oxyCODONE-aceta minophen (PERCOCET) 10-325 MG tablet TAKE 1 TO 2 TABLETS BY MOUTH EVERY 6 TO 8 HOURS NEEDED. MAX OF 6 PER DAY Active HYDROcodone-manuel taminophen (NORCO) 10-325 MG tablet Active cyclobenzaprine (FLEXERIL) 5 MG tablet Take 1 tablet (5 mg total) by mouth 3 (three) times daily as needed. Active atorvastatin (LIPITOR) 20 MG tablet Take 1 tablet (20 mg total) by mouth daily. 90 tablet 3 11/29/2024 6 Active Active Problems Problem Noted Date Diagnosed Date Activated protein C resistance (HHS/HCC) 024 assisted (current) use of anticoagulants 2023 Pure hypercholesterolemia, unspecified 4 Dyspnea on exertion 03/24/2024 Near syncope 05/30/2023 Heterozygous factor V Leiden mutation (HHS/HCC) 06/09/2020 History of pulmonary embolism 06/09/2020 Hyperlipidemia Chest pain Essential hypertension Encounters Date Type Department Care Team Description 12/17/2024 Telephone [facility] - [facility] [address] [place] [id number] Arsalan Montesinos MD Question 11/29/2024 10:45 AM MOTOR TRANSPORT INSPECTOR Office Visit [facility] [place] [address] Sarita Bhat MD Annual (Follow up) 11/29/2024 Travel from Last 3 Months Immunizations Immunization Administration Dates Next Due FLUAD (IIV, Trivalent, 0.5 ML Pre-filled Syringe ) 07/16/2024 MODERNA COVID-19 (12+), MRNA , LNP-S, PF, 50 MCG/0.5 ML (SPIKEVAX) 07/15/2023 Family History Medical History Relation Comments Valve Disease Brother 1 Heart Attack Brother 2 Valve Disease Brother 2 Heart Attack Father AL Father AL Maternal Uncle 1 AL Maternal Uncle 2 Relation Status Comments Brother 1 Alive Brother 2 Alive Father (Age 60) Maternal Grandfather Maternal Grandmother Maternal Uncle 1 Maternal Uncle 2 Mother (Age 81) Paternal Grandfather Paternal Grandmother Social History Tobacco Use Types Packs/Day Years Used Date Smoking Tobacco: Never Smokeless Tobacco: Never Tobacco Cessation:Counseling Given: Yes Alcohol Use Standard Drinks/Week Comments Yes 3.3 (1 standard drink = 0.6 oz p ure alcohol) AUDIT-C Answer Date Recorded Frequency of Alcohol Consumption Not on file 07/17/2018 Average Number of Drinks 3 or 4 018 Frequency of Binge Drinking Not on file 02/2018 Sex and Gender Information Value Date Recorded Sex Assigned at Male 11/29/2024 10:25 AM MOTOR TRANSPORT INSPECTOR Legal Sex Male 6:46 PM CDT Gender Identity Not on file Sexual Orientation Not on file Last Filed Vital Signs Vital Sign Reading Time Taken Comments Blood Pressure 112/70 11/29/2024 10:37 AM MOTOR TRANSPORT INSPECTOR Pulse 78 11/29/2024 10:37 AM MOTOR TRANSPORT INSPECTOR Temperature 36.1 C (97 F) 10/08/2024 10:39 AM MOTOR TRANSPORT INSPECTOR Respiratory Rate 18 10/08/2024 10:39 AM MOTOR TRANSPORT INSPECTOR Oxygen Saturation 98% 11/29/2024 10:37 AM MOTOR TRANSPORT INSPECTOR Inhaled Oxygen Concentration - - Weight 90.7 kg (200 lb) 11/29/2024 10:37 AM MOTOR TRANSPORT INSPECTOR Height 182.9 cm (6') 11/29/2024 10:37 AM MOTOR TRANSPORT INSPECTOR Body Mass Index 27.12 11/29/2024 10:37 AM MOTOR TRANSPORT INSPECTOR Plan of Treatment Upcoming Encounters Date Type Department Care Team (Late st Contact Info) Description 12/05/2025 10:30 AM MOTOR TRANSPORT INSPECTOR Office Visit [facility], [address] [place], [place] [phone] Sarita Bhat MD [facility] [address] [place] [address] Health Maintenance Due Date Last Done Comments Colorectal Cancer Screening Colonoscopy (10 Years) 1955 Hepatitis C 1971 DTaP, Tdap and Td Vaccines (1 - Tdap) 02/28/1972 Pneumococcal Vaccine: 50+ Years (1 of 2 - PCV) 02/28/1972 Zoster Vaccines (1 of 2) 2003 RSV Immunization or 60+ Years (1 - Risk 60-74 years 1-dose series) 2013 Annual Medicare Wellness Visit 2018 ASCVD LDL 06/09/2024 06/09/2023, 03/15/2017 COVID-19 Vaccine ( season) 2024 07/15/2023, 07/09/2022, 01/11/2022, Additional history exists PHQ-2 ([facility]) 10/13/2024 Meningococcal B Vaccine Aged Out No l onger eligible based on patient's age to complete this topic Meningococcal Vaccine Aged Out No crystal inder eligible based on patient's age to complete this topic RSV Immunizations Under 20 Months Aged Out No longer eligible based on patient's age to complete this topic Procedures Procedure Name Priority Date/Time Associated Diagnosis Comments LIPID PANEL Routine 06/09/2023 from Last 3 Months or Most Recently Relevant to Health Maintenance Results * LIPID PANEL (06/09/2023) CHOLESTEROL 148 0 - 200 HDL 53 >40 TRIGLYCERIDES 78 0 - 150 LDL (CALCULATED) 80 0 - 100 VLDL CALCULATION 15 5 - 40 06/09/2023 us Default History Genericprovider LABORATORY Final Result from Last 3 Months or Most Recently Relevant to Health [place] [id number] [facility] MEDICARE [facility] Care Teams Patient Navigator Relationship Specialty Start Date End Date George Vargas MD [address] [facility] [address] [place] [address] PCP - General INTERNAL MEDICINE 04/04/23 Ana Ojeda MD [employer] INTERVENTIONAL CARDIOLOGY 07/08/18
--- OUTSIDE RECORDS SUMMARY | 2025-02-22 08:23 | XMS_ITS | Clinical Summary ---
Author Organization [facility] Address [address] [place] [address] Care Team Providers Care Pulp Drier Firer Name Role Phone George Vargas MD Primary Care Provider Allergies Active Allergy Reactions Criticality Noted Date Comments Lisinopril Angioedema High 04/11/2017 Medications felodipine (PLENDIL) 10 mg Extended Release 24 hour tablet Take 10 mg by mouth daily. Active losartan (COZAAR) 50 mg tablet Take 50 mg by mouth daily. Active atorvastatin (LIPITOR) 10 mg tablet Take 10 mg by mouth daily with supper. Active metoprolol tartrate (LOPRESSOR) 50 mg tablet Take 25 mg by mouth daily. 09/05/2021 Active Eliquis 5 mg tabletIndication s:Hypercoagulabl e state,History of pulmonary embolism Take 1 Tablet (5 mg) by mouth 2 times daily. 90 Tablet 3 10/25/2022 Active Active Problems Problem Noted Date Diagnosed Date Heterozygous factor V Leiden mutation 06/09/2020 History of pulmonary embolism 06/09/2020 Hypercoagulable state 04/11/2017 Resolved Problems Problem Noted Date Diagnosed Date Resolved Date Other pulmonary embolism wit hout acute cor pulmonale 12/10/2019 06/09/2020 Encounters Date Type Department Care Team Description 01/25/2025 External Device Data STL ABSTRACTION Provider, Abstract 01/18/2025 External Device Data STL ABSTRACTION Provider, Abstract 12/29/2024 External Device Data STL ABSTRACTION Provider, Abstract 12/20/2024 External Device Data STL ABSTRACTION Provider, Abstract 12/07/2024 External Device Data STL ABSTRACTION Provider, Abstract from Last 3 Months Family History Medical History Relation Name Comments Heart Disease Brother 1 Healthy Brother 2 Healthy Brother 3 Heart Disease Father Lung Cancer Father Breast Cancer Mother COPD Mother Relation Name Status Comments Brother 1 Alive Brother 2 Alive Brother 3 Alive Father Mother Social History Tobacco Use Types Packs/Day Years Used Date Smoking Tobacco: Never Smokeless Tobacco: Never Tobacco Cessation:Counseling Given: Not Answered Alcohol Use Standard Drinks/Week Comments Yes 0 (1 standard drink = 0.6 oz pur e alcohol) moderate Sex and Gender Information Value Date Recorded Sex Assigned at Not on file 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 Gender Identity Not on file Sexual Orientation Not on file Last Filed Vital Signs Vital Sign Reading Time Taken Comments Blood Pressure 122/73 01/26/2024 10:08 AM CDT Pulse 78 01/26/2024 10:05 AM CDT Temperature 36.5 C (97.7 F) 01/26/2024 10:05 AM CDT Respiratory Rate 18 01/26/2024 10:0 5 AM CDT Oxygen Saturation 93% 01/26/2024 10: 05 AM CDT Inhaled Oxygen Concentration - - Weight 87.9 kg (193 lb 12.8 oz) 024 10:05 AM CDT Height 182.9 cm (6') 12/31/2021 2:45 PM CDT Body Mass Index 26.28 12/31/2021 2:45 PM CDT Plan of Treatment Upcoming Encounters Date Type Department Care Team (Late st Contact Info) Description 03/08/2025 11:45 AM CDT Office Visit [facility] - [place] [address] [facility] [address] [place] [address] Fuad Rodríguez MD [address] [facility] [address] [place] [address] Health Maintenance Due Date Last Done Comments DTAP/TDAP/TD VACCINES (1 - Tdap) 02/28/1972 Traditional Medicare (ACO) Annual Wellness Visit 02/27 FIT-DNA Q 3 years 1998 FIT/FOBT Q 1 year 1998 Flex Sig/CT Colonography Q 5 years 1998 PNEUMOCOCCAL VACCINE 50+ YEARS (1 of 1 - PCV) 02/28/20 03 ZOSTER VACCINE (1 of 2) 2003 INFLUENZA VACCINE (#1) 2024 RSV VACCINE (60+ or ) (1 - 1-dose 75+ series) 02/28/2028 COLORECTAL SCREENING 01/25/2029 01/25/2019 Colorectal Cancer Screening 01/25/2029 Insurance MEDICARE PART A AND B [id number] MEDICARE PART A AND B [id number] Care Teams Pulp Drier Firer Relationship Specialty Start Date End Date George Vargas MD [address] [facility] [address] [place] [phone] PCP - General Internal Medicine 01/15/23
--- OUTSIDE RECORDS SUMMARY | 2025-02-22 08:23 | XMS_ITS ---
Author Organization [facility] Address [address] [place], [place] [id number] Care Team Providers Care Radiology Technician Name Role Phone Answer, Declined Unavailable Unavailable CARLA BAIG Unavailable [phone] Allergies Allergen (clinical drug ingredient) Drug/Non Drug Allergy documented on EMR Reaction Allergy Type Onset Date Status lisinopril Lisinopril Unknown Drug Allergy Activ e REASON FOR VISIT The patient has never had an ingrown toenail. A few weeks ago, he felt some pain on the side of theright great toenail and tried to dig some of it out. Later, it got hot and red. His PCP put him on an antibiotic and the redness and warmth went down, but it still was very painful and swollen Immunizations Vaccine Route Administration Date Status Comme nts Influenza, high dose seasonal Unknown 12/25/2023 Refuse d Pneumococcal conjugate PCV 13 Unknown 12/25/2023 Refuse d Social History Tobacco Use: Social History Observation Description Date Details (start date - stop date) Never Smoker NA - NA Tobacco Control (Standard) Question Answer Notes Tobacco use: Nonsmoker Vital Signs Weight 200 lbs 12/25/2023 Weight-kg 90.72 kg 12/25/2023 Height 72 in 12/25/2023 Height-cm 182.88 cm 12/25/2023 BMI 27.12 kg/m2 12/25/2023 Encounters Encounter Location Date Provider Diagnosis [facility] [address] [facility] [address] [place], [place] [id number] 12/25/2023 CARLA BAIG Ingrowing nail L60.0 ; Cellulitis of right toe L03.031 and Pain in right toe(s) M79.674 Assessments Encounter Date Diagnosis (ICD Code) Assessment Notes Treatment Notes Treatment Clinical Notes Section Notes 12/25/2023 Ingrowing nail (ICD-10 - L60.0) Partial Nail Avulsion: I discussed various treatment options to the patient for their nail condition. The patient decided on non-permenant removal of the nail border. The consent was signed and placed in the patients chart and all questions were answered. Following skin prep, the toe was injected with 3ccs of a 1:1 mixture of 0.5% marcaine plain and 1% lidocaine plain. A digital tournequet was applied and the offending nail border was removed. The digital tourniquet was released and the toe was cleansed with isopropyl aclcohol. A dry sterile compressive dressing was applied and the patient was given soaking instructions. The lateral border of the right hallux toenail was treated 12/25/2023 Cellulitis of right toe (ICD-10 - L03.031) Epsom Salt Foot Soaks: I advised the patient to soak feet in warm (not hot) water and epsom salt for 15 minutes, twice a day. Infection Protocol: Patient instructed to observe foot for signs and symptoms of infection, including but not limited to: increased redness and warmth to the area, increased drainage from the area, foul odor, and/or presence of fever/chills/michael sea/vomiting. If patient experiences any of the above they are to call the office immediately, if someone is not present in the office then proceed to the nearest ER. 12/25/2023 Pain in right toe(s) (ICD-10 - M79.674) Plan Of Treatment Treatment Notes Assessment Notes Ingrowing nail Partial Nail Avulsion: I discussed various treatment options to the patient for their nail condition. The patient decided on non-permenant removal of the nail border. The consent was signed and placed in the patients chart and all questions were answered. Following skin prep, the toe was injected with 3ccs of a 1:1 mixture of 0.5% marcaine plain and 1% lidocaine plain. A digital tournequet was applied and the offending nail border was removed. The digital tourniquet was released and the toe was cleansed with isopropyl aclcohol. A dry sterile compressive dressing was applied and the patient was given soaking instructions. The lateral border of the right hallux toenail was treated Cellulitis of right toe Epsom Salt Foot Soaks: I advised the patient to soak feet in warm (not hot) water and epsom salt for 15 minutes, twice a day. Infection Protocol: Patient instructed to observe foot for signs and symptoms of infection, including but not limited to: increased redness and warmth to the area, increased drainage from the area, foul odor, and/or presence of fever/chills/nausea/vomiting. If patient experiences any of the above they are to call the office immediately, if someone is not present in the office then proceed to the nearest ER. Next Appt Details Follow Up: 1 Week, Reason: P artial nail avulsion check Progress Notes * Victorino TURCIOSDOB: [birth year] (69 yo M)Acc No.[id number]:12/25/2023 Progress Notes Patient: Romina HALEIGHJOSELITOJAMEY Victorino Provider: Tiffanie Baig DPM :1955 A ge:68 Y S ex:Male Date:12/25/2023 Address:[address] [place] [address] Subjective: * Chief Complaints: * 1 . The patient has never had an ingrown toenail. A few weeks ago, he felt some pain on the side of the right great toenail and tried to dig some of it out. Later, it got hot and red. His PCP put him on an antibiotic and the redness and warmth went down, but it still was very painful and swollen. * HPI: H PI: New Complaint P alia presents for a new patient consultation. P alia complains of an infected toe. Pt states he had a round of antibiotics from his PCP but is still having issues. D uration of problem is 3 weeks. M A: As. * ROS: G eneral / Constitutional: Patient denies c hills, fever, weakness, night sweats. M usculoskeletal: Patient denies c hildhood foot problems, weakness. ? P eripheral Vascular: Patient denies u lceration of feet, cold extremities. ? S kin: Patient denies u lcerations, discoloration. P atient complains of i ngrown nails. N eurologic: Patient denies b alance difficulty, confusion, difficulty speaking, dizziness. * Medical History: M edical History Verified. * Social History: T obacco Use: T obacco Control (Standard) T obacco use: N onsmoker. * Medications: N one * Allergies: L isinopril. Objective: * Vitals: S hoe Size: 12-13, Wt:200lbs, Wt-k.72 kg, Ht: 72 in, Ht-cm: 182.88 cm, BMI:27.12Index, Body Surface Area: 2.14. * Examination: C onstitutional: Constitutional T he patient is awake, alert, well developed, well groomed and well nourished.. D ermatologic: Skin findings: S kin is warm, dry, supple with no breaks in the skin.. Ingrown Nail t he lateral nail border is incurvated on the right hallux. No purulence, no streaking, no calor; there is localized erythema. ? V ascular: Dorsalis pedis pulse: 2 /4, bilateral. Posterior tibial pulse: 2 /4, bilaterally. Capillary refill: l ess than 3 seconds. Edema: N o edema, bilateral. N eurologic: Gross sensation G ross sensation is intact to light touch..? M usculoskeletal: Muscle Strength M uscle strength is 5/5 in regards to dorsiflexion, plantarflexion, inversion, and eversion in bilateral lower extremities.. ? Assessment: * Assessment: 1. I ngrowing nail - L60.0 (Primary) 2 . C ellulitis of right toe - L03.031? 3. P ain in right toe(s) - M79.674 Plan: * Treatment: 2. C ellulitis of right toe Notes: Epsom Salt Foot Soaks: I advised the patient to soak feet in warm (not hot) water and epsom salt for 15 minutes, twice a day. Infection Protocol: Patient instructed to observe foot for signs and symptoms of infection, including but not limited to: increased redness and warmth to the area, increased drainage from the area, foul odor, and/or presence of fever/chills/nausea/vomiting. If patient experiences any of the above they are to call the office immediately, if someone is not present in the office then proceed to the nearest ER. * Immunizations: Influenza, high dose seasonal (Not administered - Refused: Not Administered by Our Office / Per Patient's Paperwork Flu Vaccine Administered on 10/16/2022) Pneumococcal conjugate PCV 13 (Not administered - Refused: Patient decision) ???Immunization record has been reviewed and updated. * Procedure Codes: 1 1730 REMOVAL OF NAIL PLATE, Modifiers: T5 * Follow Up: 1 Week (Reason: Partial nail avulsion check) * Billing Information: * Visit Code: 58042 Office Visit, New Pt., Level 3. Modifiers: 25 * Procedure Codes: 07590 REMOVAL OF NAIL PLATE. Modifiers: T5 * Electronic signature of CARLA BAIG DPM on 02/22/2025 at 08:22 AM CDT Sign off status: Pending * Provider: Tiffanie Baig DPM Date: 0 12/25/2023 Generated for Dionte richard/Gibran/Dominic on: 0 02/22/2025 08:22 AM CDT History and Physical Notes * HPI (History of Present Illness) Category Sub-Category Detail Notes Category Not es HPI New Complaint Patient presents for a new patient consultation. Patient complains of an infected toe. Pt states he had a round of antibiotics from his PCP but is still having issues. Duration of problem is 3 weeks. MA: As Examination Category Sub-Category Detail Notes Category Not es Dermatologic Skin findings: Skin is warm, dr y, supple with no breaks in the skin. Ingrown Nail the lateral nail bor joana is incurvated on the right hallux. No purulence, no streaking, no calor; there is localized erythema Neurologic Gross sensation Gross sensation is intact to light touch. Vascular Dorsalis pedis pulse: 2/4, bilateral Edema: No edema, bilateral Capillary refill: less than 3 seconds Posterior tibial pulse: 2/4, bilaterally Musculoskeletal Muscle Strength Muscle strength is 5/5 in regards to dorsiflexion, plantarflexion, inversion, and eversion in bilateral lower extremities. Constitutional Constitutional The patient is a wake, alert, well developed, well groomed and well nourished.
[2025-02-22 08:29] LABS: Basophils Absolute Auto 0.1 K/mm3 (0.0-0.1); Eosinophils Absolute Auto 0.1 K/mm3 (0-0.3); Eosinophils Percent Auto 1.4 % (0-4.4); Hematocrit 42.1 % (42.0-52.0); Hemoglobin 14.5 g/dL (14.0-18.0); Immature Granulocyte Absolute 0.01 K/mm3 (0.00-0.031); Immature Granulocyte Percent A 0.2 % (0-0.5); Lymphocytes Absolute Auto 1.31 K/mm3 (0.9-3.2); Lymphocytes Percent Auto 25.5 % (18.3-44.2); Mean Corpuscular HGB Conc 34.4 g/dl (32-36); Mean Corpuscular Hemoglobin 31.1 pg (26-34); Mean Corpuscular Volume 90.3 fl (80-100); Mean Platelet Volume 8.7 fl (7.4-10.4); Monocytes Absolute Auto 0.4 K/mm3 (0.1-0.6); Monocytes Percent Auto 8.6 % (2.6-8.5); Neutrophils Absolute Auto 3.3 K/mm3 (1.3-6.7); Neutrophils Percent Auto 63.3 % (45.5-73.1); Platelet Count Result 192 k/mm3 (150-375); Red Blood Count 4.66 M/mm3 (4.6-6.20); Red Cell Distribution Width 12.7 % (11.5-14.5); White Blood Count 5.1 K/mm3 (4.5-10.0)
[2025-02-22 09:00] LABS: Anion Gap 7 mmol/L (4-12); Blood Urea Nitrogen 14 mg/dL (9-20); Calcium 8.7 mg/dL (8.4-10.2); Carbon Dioxide 26 mmol/L (22-30); Chloride 106 mmol/L (98-107); Estimated Glomerular Filt Rate > 60; Glucose 114 mg/dL (65-110); Potassium 4.2 mmol/L (3.4-5.0); Sodium 139 mmol/L (137-145)
[2025-02-22 09:01] LABS: D Dimer 0.36 ug/mL (<0.48)
== END 2025-02-22 08:17 | disposition home or self-care (01) ==
LOC: ANHLAB 08:20
PROVIDERS: PCP Internal Medicine; Visit Provider Internal Medicine Hematology & Oncology
DX: D68.59 Other primary thrombophilia (principal)
CPT/HCPCS: 36415; 80048; 85025; 85380